=== PATIENT | male | born 1945 | race Two or more races ===

== ENCOUNTER 2018-06-22 11:09 | Emergency (ER) | payer OTHER ==
[2018-06-22 11:23] VITALS: TEMP 97.8; BMI 27.9
[2018-06-22] MEDS ORDERED: SODIUM CHLORIDE 0.9% 1000 ML INFUS.BAG IV ONE ×2 (13:15→15:42)
[2018-06-22 13:33] LABS: URINE APPEARANCE CLEAR; URINE BILIRUBIN NEGATIVE (<2.0 mg/dL); URINE COLOR STRAW; URINE GLUCOSE (UA) 3+ (NEGATIVE); URINE KETONE 1+ (NEGATIVE); URINE LEUK ESTERASE NEGATIVE (NEGATIVE); URINE NITRITE NEGATIVE (NEGATIVE); URINE PROTEIN NEGATIVE (NEGATIVE); URINE UROBILINOGEN NEGATIVE mg/dL (0.2-1.0)
[2018-06-22 13:37] LABS: EOS % 0.8 % (0-4.5); HEMATOCRIT 44.8 % (35.4-49); HEMOGLOBIN 15.4 GM/dL (11.7-16.9); LYMPH % 19.9 % (8-40); MCHC 34.5 g/dl (32.0-35.9); MEAN CELL VOLUME 89.9 fl (80-96); MEAN PLT VOLUME 9.4 fl (7.5-11.1); MONO % 5.9 % (3.8-10.2); NEUT % 72.4 % (42.8-82.8); PLATELET COUNT 189 K/MM3 (134-434); RBC 4.99 M/mm3 (4.00-5.60); RDW 12.9 % (11.9-15.9); WHITE BLOOD COUNT 8.4 K/mm3 (4.0-10.0)
[2018-06-22 13:53] LABS: VENOUS PC02 47.5 mmHg (38-52); VENOUS PH 7.4 (7.32-7.42)
[2018-06-22 13:54] LABS: VENOUS PO2 29.8 mmHg (28-48)
[2018-06-22 14:20] LABS: ALK PHOS 81 U/L (45-117); ANION GAP 9 MMOL/L (8-16); BILIRUBIN,TOTAL 0.5 mg/dL (0.2-1); BLOOD UREA NITROGEN 9 mg/dL (7-18); CHLORIDE 96 mmol/L (98-107); CO2 29 mmol/L (21-32); CREATININE 1.1 mg/dL (0.55-1.3); N-TERMINAL BNP 25.4 pg/ml (5-125); POTASSIUM 4.3 mmol/L (3.5-5.1); SGOT/AST 12 U/L (15-37); SGPT/ALT 20 U/L (13-61); SODIUM 133 mmol/L (136-145); TOT PROT 7.7 g/dl (6.4-8.2)
--- NOTE | 2018-06-22 14:49 | EKG ---
Test Reason : Blood Pressure : / mmHG Vent. Rate : 092 BPM Atrial Rate : 092 BPM P-R Int : 156 ms QRS Dur : 078 ms QT Int : 370 ms P-R-T Axes : 085 -23 021 degrees QTc Int : 457 ms POOR DATA QUALITY, INTERPRETATION MAY BE ADVERSELY AFFECTED NORMAL SINUS RHYTHM NORMAL ECG NO PREVIOUS ECGS AVAILABLE Confirmed by LORI CARCAMO MD ([id number]) on 06/22/2018 2:49:08 PM Referred By: Confirmed By:LORI CARCAMO MD
[2018-06-22 14:52] LABS: GLUCOSE,RANDOM 382 mg/dL (74-106)
[2018-06-22 16:42] LABS: ACETONE SERUM NEGATIVE (NEGATIVE)
--- NOTE | 2018-06-22 16:45 | PDOC ---
Documentation entered by Garima Lovelace SCRIBE, acting as scribe for Latoya Saleh MD. History of Present Illness - General Chief Complaint: Blood Sugar Problem Stated Complaint: HYPERGLYCEMIA History Source: Patient Exam Limitations: No Limitations - History of Present Illness Initial Comments: 06/22/18 13:10 The patient is a 72 year old female, with a significant past medical history of diabetes, who presents to the emergency department sent from the office of Dr. Morris for evaluation of lower extremity swelling, increased thirst, and polyuria. The patient denies any other complaints at this time. He states he used to take medications for his diabetes, however, stopped taking his medications 5 years ago and has not seen a physician until today. The patient denies chest pain, shortness of breath, headache and dizziness. The patient denies fever, chills, nausea, vomit, diarrhea and constipation. The patient denies dysuria, frequency, urgency and hematuria. leg swelling is bilateral. no h/o pe or dvt. does not report exertional dyspnea or orthopnea. no other complaints. Allergies: NKDA PCP - Dr. Marlena Morris 06/22/18 14:43 Past History - Past Medical History Allergies/Adverse Reactions: Allergies Allergy/AdvReac Type Severity Reaction Status Date / Time No Known Allergies Allergy Verified 06/22/18 11:19 Home Medications: Ambulatory Orders Metformin HCl [Glucophage] 500 mg PO BID #50 tablet 06/22/18 COPD: No Diabetes: Yes (no meds @ 5 years) - Suicide/Smoking/Psychosocial Hx Smoking History: Never smoked Review of Systems - Review of Systems Able to Perform ROS?: Yes Comments:: 06/22/18 13:12 GENERAL/CONSTITUTIONAL: No fever or chills. No weakness. HEAD, EYES, EARS, NOSE AND THROAT: No change in vision. No ear pain or discharge. No sore throat. CARDIOVASCULAR: No chest pain or shortness of breath. RESPIRATORY: No cough, wheezing, or hemoptysis. GASTROINTESTINAL: No nausea, vomiting, diarrhea or constipation. GENITOURINARY: (+) increased urinary frequency. No dysuria MUSCULOSKELETAL: (+) lower extremity swelling. No joint or muscle pain. No neck or back pain. SKIN: No rash NEUROLOGIC: No headache, vertigo, loss of consciousness, or change in strength/ sensation. ENDOCRINE: (+) increased thirst. No abnormal weight change. HEMATOLOGIC/LYMPHATIC: No anemia, easy bleeding, or history of blood clots. ALLERGIC/IMMUNOLOGIC: No hives or skin allergy. *Physical Exam - Vital Signs Last Vital Signs Temp Pulse Resp BP Pulse Ox 97.8 F 104 H 18 139/75 100 06/22/18 11:21 06/22/18 11:21 06/22/18 11:21 06/22/18 11:21 06/22/18 11:21 - Physical Exam Comments: 06/22/18 13:13 GENERAL: Awake, alert, and fully oriented, in no acute distress ENT: Moist mucosa LUNGS: Breath sounds equal, clear to auscultation bilaterally. No wheezes, and no crackles HEART: Regular rate and rhythm, normal S1 and S2, no murmurs, rubs or gallops ABDOMEN: Soft, nontender, normoactive bowel sounds. No guarding, no rebound. No masses EXTREMITIES: (+) nonpitting edema to bilateral lower extremities. Normal range of motion, No clubbing or cyanosis. No cords, erythema, or tenderness NEUROLOGICAL: Cranial nerves II through XII grossly intact. Normal speech, normal gait SKIN: Warm, Dry, normal turgor, no rashes or lesions noted. Moderate Sedation - Procedure Monitoring Vital Signs: Procedure Monitoring Vital Signs Temperature 97.8 F 06/22/18 11:21 Pulse Rate 104 H 06/22/18 11:21 Respiratory Rate 18 06/22/18 11:21 Blood Pressure 139/75 06/22/18 11:21 O2 Sat by Pulse Oximetry (%) 100 06/22/18 11:21 Heart Score/ECG Review #1 General ECG Interpretation: Sinus Rhythm, Normal Rate (92), Normal Intervals Compared to previous ECG there are: Previous ECG unavail ED Treatment Course - LABORATORY CBC & Chemistry Diagram: 06/22/18 13:20 06/22/18 13:20 - ADDITIONAL ORDERS Additional order review: Laboratory Results 06/22/18 06/22/18 06/22/18 13:20 13:20 13:20 VBG pH 7.40 POC VBG pCO2 47.5 POC VBG pO2 29.8 VBG O2 Sat (Erin) 45.8 L* VBG Base Excess 3.9 H Mixed VBG HCO3 29.1 H Sodium 133 L Potassium 4.3 Chloride 96 L Carbon Dioxide 29 Anion Gap 9 BUN 9 Creatinine 1.1 Creat Clearance w eGFR > 60 Calcium 9.0 Total Bilirubin 0.5 AST 12 L ALT 20 Alkaline Phosphatase 81 Creatine Kinase 48 Troponin I < 0.02 B-Natriuretic Peptide 25.4 Total Protein 7.7 Albumin 4.0 Urine Color Straw Urine Appearance Clear Urine pH 6.0 Ur Specific Comfrey 1.036 H Urine Protein Negative Urine Glucose (UA) 3+ H Urine Ketones 1+ H Urine Blood Negative Urine Nitrite Negative Urine Bilirubin Negative Urine Urobilinogen Negative Ur Leukocyte Esterase Negative 06/22/18 13:20 RBC 4.99 MCV 89.9 MCHC 34.5 RDW 12.9 MPV 9.4 Neutrophils % 72.4 Lymphocytes % 19.9 Monocytes % 5.9 Eosinophils % 0.8 Basophils % 1.0 - Medications Given in the ED: ED Medications Discontinued Medications Generic Name Dose Route Start Last Admin Trade Name Freq PRN Reason Stop Dose Admin Sodium Chloride 1,000 ml 06/22/18 13:15 06/22/18 13:35 Normal Saline - IV 06/22/18 13:16 1,000 ml ONCE ONE Administration Medical Decision Making - Medical Decision Making 06/22/18 14:45 72 yo male h/o DM not on meds x 5 yrs, here with c/o high sugar at pcp. bilat leg edema x 3 weeks. no sob, no cp, no f/c does report polyuria, polydypsia. differential dka hyperglycemia, dehydration, chf, angina or underlying infection. plan labs acetone, vbg, ekg, cxr and bnp. will call pcp to discuss followup care pending results. 06/22/18 15:42 pt with hyperglycemia, no dka no anion gap. hydrated. will repeat sugar and give insulin as needd. will sangeeta guevara on metformin with close followup. paged pcp dr. Morris, awaiting call back. 06/22/18 18:18 dw office, will see pt tomorrow. given insulin. will repeat sugar. will be started on metformin 500 bid with meals. *DC/Admit/Observation/Transfer Diagnosis at time of Disposition: Hyperglycemia - Prescriptions Prescriptions: Metformin HCl [Glucophage] 500 mg PO BID #50 tablet - Referrals Referrals: Casie Toney MD [Primary Care Provider] - - Patient Instructions Printed Discharge Instructions: DI for Hyperglycemia -- Adult, 'Diet Plate' May Help People With Diabetes Lose Weight Additional Instructions: you are supposed to follow up with dr Morris or the covering doctor tomorrow. you sugar is 318. you should avoid heavy sugar, and carbohydrates. adániu should also take metformin 500 mg twice daily with your meals. return for dizziness, chest pain or any concerns. Print Language: ROMANIAN - Post Discharge Activity - Attestations Scribe Attestion: 06/22/18 13:14 Documentation prepared by Garima Lovelace, acting as medical staff manager for MD Delfino Singh Angela, MD: This documentation has been prepared by the [employer] Amanda, SCRIBE, under my direction and personally reviewed by me in its entirety. I confirm that the documentation accurately reflects all work, treatment, procedures, and medical decision making performed by me.
[2018-06-22 18:07] VITALS: BP 127/68; PULSE 89
[2018-06-22] MEDS ORDERED: INSULIN REGULAR HUMAN 100 UNITS/ML *VIAL IVPUSH ONE (18:17)
[2018-06-22] MEDS ORDERED: INSULIN REGULAR HUMAN 100 UNITS/ML *VIAL ONE (18:20)
== END 2018-06-22 19:26 | disposition home or self-care (01) ==
LOC: JER 11:09
PROC: 3E013VG Introduction of Insulin into Subcutaneous Tissue, Percutaneous Approach (ICD-10-PCS; principal; 2018-06-22)
PROC: 3E0337Z Introduction of Electrolytic and Water Balance Substance into Peripheral Vein, Percutaneous Approach (ICD-10-PCS; 2018-06-22)
DX: E11.65 Type 2 diabetes mellitus with hyperglycemia (principal)
CPT/HCPCS: 36415; 80053; 81003; 82009; 82550; 82803; 82962; 83036; 83880; 84484; 85025; 93005; 93010; 96374; 99284-25; J7030

== ENCOUNTER 2020-12-29 09:19 | Inpatient (IN) | payer OTHER ==
[2020-12-29 09:39] VITALS: BMI 31.4
[2020-12-29] MEDS ORDERED: ACETAMINOPHEN 1000 MG/100 ML VIAL (NON FORMULARY) IVPB ONE (10:40)
[2020-12-29] MEDS ORDERED: ACETAMINOPHEN INJECTION 100 ML IVPB ONE (10:43)
[2020-12-29 11:18] LABS: BASO % 0.6 % (0-2.0); EOS % 0.4 % (0-4.5); HEMATOCRIT 36.2 % (35.4-49); HEMOGLOBIN 12.1 GM/dL (11.7-16.9); LYMPH % 12.3 % (8-40); MCH 29.4 pg (25.7-33.7); MCHC 33.6 g/dl (32.0-35.9); MEAN CELL VOLUME 87.7 fl (80-96); MEAN PLT VOLUME 10.5 fl (7.5-11.1); MONO % 6.9 % (3.8-10.2); NEUT % 79.8 % (42.8-82.8); PLATELET COUNT 102 10^3/uL (134-434); RBC 4.13 M/mm3 (4.00-5.60); WHITE BLOOD COUNT 5.5 K/mm3 (4.0-10.0)
[2020-12-29 11:37] LABS: VENOUS BASE EXCESS 4.7 mmol/L (-2-2); VENOUS O2 SATURATION 94.7 % (70-80); VENOUS PCO2 39.4 mmHg (38-52); VENOUS PH 7.477 (7.310-7.410)
[2020-12-29 11:40] LABS: CHLORIDE 106 mmol/L (98-107); SODIUM 141 mmol/L (136-145)
[2020-12-29 11:42] LABS: ALBUMIN 3.1 g/dl (3.4-5.0); CALCIUM 9.9 mg/dL (8.5-10.1); LIPASE 79 U/L (73-393)
[2020-12-29 11:43] LABS: ANION GAP 4 MMOL/L (8-16); CO2 30 mmol/L (21-32); GLUCOSE,RANDOM 110 mg/dL (74-106)
[2020-12-29 11:45] LABS: CREATININE 1.2 mg/dL (0.55-1.3); SGOT/AST 54 U/L (15-37); SGPT/ALT 38 U/L (13-61)
[2020-12-29 11:47] LABS: BILIRUBIN,TOTAL 0.4 mg/dL (0.2-1); TOT PROT 7.4 g/dl (6.4-8.2)
[2020-12-29 11:48] LABS: ALK PHOS 83 U/L (45-117)
[2020-12-29 14:46] LABS: EPI CELLS 12 /uL (0-25.1); HYALINE CASTS 1 /uL (0-3.1); PH,URINE 8.5 (5.0-8.0); URINE APPEARANCE TURBID; URINE BACTERIA 103 /uL (0-1359); URINE BILIRUBIN NEGATIVE (NEGATIVE); URINE COLOR YELLOW; URINE GLUCOSE (UA) NEGATIVE (NEGATIVE); URINE KETONE TRACE (NEGATIVE); URINE LEUK ESTERASE 1+ (NEGATIVE); URINE NITRITE NEGATIVE (NEGATIVE); URINE PROTEIN NEGATIVE (NEGATIVE); URINE RBC 9 /uL (0-23.9); URINE UROBILINOGEN 0.2 mg/dL (0.2-1.0); URINE WBC 92 /uL (0-25.8)
[2020-12-29 18:22] LABS: N-TERMINAL BNP 561.6 pg/ml (5-450)
[2020-12-30] MEDS ORDERED: ACETAMINOPHEN 325 MG TABLET (FP) PO PRN (00:41)
[2020-12-30] MEDS ORDERED: ACETAMINOPHEN 325 MG TABLET (FP) ONE (01:03)
[2020-12-30] MEDS ORDERED: FUROSEMIDE 40 MG/4 ML INJECTABLE VIAL IVPUSH ONE (04:32)
[2020-12-30] MEDS ORDERED: FUROSEMIDE 40 MG/4 ML INJECTABLE VIAL ONE (04:45)
[2020-12-30 07:06] LABS: BASO % 0.4 % (0-2.0); EOS % 0.8 % (0-4.5); HEMATOCRIT 36.6 % (35.4-49); HEMOGLOBIN 12.3 GM/dL (11.7-16.9); LYMPH % 11.3 % (8-40); MCH 29.6 pg (25.7-33.7); MCHC 33.5 g/dl (32.0-35.9); MEAN CELL VOLUME 88.3 fl (80-96); MEAN PLT VOLUME 10.3 fl (7.5-11.1); MONO % 6.6 % (3.8-10.2); NEUT % 80.9 % (42.8-82.8); PLATELET COUNT 93 10^3/uL (134-434); RBC 4.14 M/mm3 (4.00-5.60); WHITE BLOOD COUNT 6.3 K/mm3 (4.0-10.0)
[2020-12-30 07:20] LABS: CHLORIDE 104 mmol/L (98-107); SODIUM 139 mmol/L (136-145)
[2020-12-30 07:23] LABS: ALBUMIN 3.1 g/dl (3.4-5.0); ANION GAP 6 MMOL/L (8-16); BLOOD UREA NITROGEN 21.8 mg/dL (7-18); CALCIUM 9.3 mg/dL (8.5-10.1); CO2 28 mmol/L (21-32); GLUCOSE,RANDOM 80 mg/dL (74-106); MAGNESIUM 1.9 mg/dL (1.8-2.4)
[2020-12-30 07:26] LABS: CREATININE 1.2 mg/dL (0.55-1.3); SGOT/AST 50 U/L (15-37); SGPT/ALT 35 U/L (13-61)
[2020-12-30 07:27] LABS: PHOSPHOROUS 3.4 mg/dL (2.5-4.9)
[2020-12-30 07:28] LABS: BILIRUBIN,TOTAL 0.6 mg/dL (0.2-1); TOT PROT 7.3 g/dl (6.4-8.2)
[2020-12-30 07:29] LABS: ALK PHOS 82 U/L (45-117)
[2020-12-30 07:33] LABS: LDH 219 U/L (87-246)
[2020-12-30] MEDS: INSULIN SLIDING SCALE (NOVOLOG) 1 VIAL SQ SCH ×3 (10:07→21:34)
[2020-12-30] MEDS: SODIUM HYPOCHLORITE 0.25%- 473 ML BULK BOTTLE TP SCH (10:08)
[2020-12-30] MEDS: ENOXAPARIN NA (PORCINE) 40 MG/0.4 ML DISP.SYRIN SQ SCH (10:08)
[2020-12-30] MEDS ORDERED: ENOXAPARIN NA (PORCINE) 40 MG/0.4 ML DISP.SYRIN SQ ONE (10:12)
[2020-12-30] MEDS ORDERED: GABAPENTIN 300 MG CAPSULE PO SCH (22:00)
[2020-12-31] MEDS ORDERED: MELATONIN 5 MG TABLETS PO ONE (02:16)
[2020-12-31] MEDS: INSULIN SLIDING SCALE (NOVOLOG) 1 VIAL SQ SCH ×5 (07:42→21:58)
[2020-12-31 08:02] LABS: HEMOGLOBIN 11.2 GM/dL (11.7-16.9); MCH 30.1 pg (25.7-33.7); MCHC 33.9 g/dl (32.0-35.9); MEAN CELL VOLUME 88.7 fl (80-96); MEAN PLT VOLUME 11.1 fl (7.5-11.1); PLATELET COUNT 87 10^3/uL (134-434); RBC 3.72 M/mm3 (4.00-5.60); RDW 16.1 % (11.9-15.9)
[2020-12-31 08:03] LABS: CALCIUM 8.4 mg/dL (8.5-10.1)
[2020-12-31 08:04] LABS: ALBUMIN 2.6 g/dl (3.4-5.0); BLOOD UREA NITROGEN 20.1 mg/dL (7-18)
[2020-12-31 08:09] LABS: BILIRUBIN,TOTAL 0.3 mg/dL (0.2-1); TOT PROT 6.3 g/dl (6.4-8.2)
[2020-12-31] MEDS: TAMSULOSIN HCL 0.4 MG CAP PO SCH (10:31)
[2020-12-31] MEDS: ENOXAPARIN NA (PORCINE) 40 MG/0.4 ML DISP.SYRIN SQ SCH (10:31)
[2020-12-31] MEDS: SODIUM HYPOCHLORITE 0.25%- 473 ML BULK BOTTLE TP SCH (12:25)
[2020-12-31] MEDS ORDERED: FUROSEMIDE 40 MG/4 ML INJECTABLE VIAL IVPUSH ONE (15:31)
[2020-12-31] MEDS: LISINOPRIL 5 MG TABLET PO SCH (18:22)
[2020-12-31] MEDS: GABAPENTIN 300 MG CAPSULE PO SCH ×2 (18:22→21:51)
[2020-12-31] MEDS: LEVOTHYROXINE SODIUM 100 MCG VIAL IVPUSH SCH (18:23)
[2020-12-31 19:17] LABS: EPI CELLS 11 /uL (0-25.1); HYALINE CASTS 0 /uL (0-3.1); PH,URINE 8.5 (5.0-8.0); URINE APPEARANCE CLEAR; URINE BACTERIA 22 /uL (0-1359); URINE BILIRUBIN NEGATIVE (NEGATIVE); URINE COLOR YELLOW; URINE GLUCOSE (UA) NEGATIVE (NEGATIVE); URINE KETONE 2+ (NEGATIVE); URINE LEUK ESTERASE 1+ (NEGATIVE); URINE NITRITE NEGATIVE (NEGATIVE); URINE PROTEIN NEGATIVE (NEGATIVE); URINE RBC 5 /uL (0-23.9); URINE WBC 88 /uL (0-25.8)
[2020-12-31] MEDS: ATORVASTATIN CA 40 MG TABLET (FP) PO SCH (21:51)
[2021-01-01] MEDS: metFORMIN HCL 500 MG TABLET (FP) PO SCH ×2 (06:00→18:04)
[2021-01-01] MEDS: INSULIN SLIDING SCALE (NOVOLOG) 1 VIAL SQ SCH ×4 (06:01→23:03)
[2021-01-01] MEDS ORDERED: sitaGLIPtin PHOSPHATE 50 MG TABLET PO SCH (07:00)
[2021-01-01 08:56] LABS: HEMATOCRIT 32.9 % (35.4-49); HEMOGLOBIN 10.8 GM/dL (11.7-16.9); MCH 29.4 pg (25.7-33.7); MCHC 32.9 g/dl (32.0-35.9); MEAN CELL VOLUME 89.6 fl (80-96); MEAN PLT VOLUME 10.7 fl (7.5-11.1); PLATELET COUNT 83 10^3/uL (134-434); RBC 3.68 M/mm3 (4.00-5.60); RDW 16.4 % (11.9-15.9); WHITE BLOOD COUNT 4.3 K/mm3 (4.0-10.0)
[2021-01-01 09:27] LABS: CALCIUM 8.2 mg/dL (8.5-10.1)
[2021-01-01 09:28] LABS: ALBUMIN 2.6 g/dl (3.4-5.0); BLOOD UREA NITROGEN 18.9 mg/dL (7-18)
[2021-01-01 09:33] LABS: BILIRUBIN,TOTAL 0.5 mg/dL (0.2-1); TOT PROT 6.3 g/dl (6.4-8.2)
[2021-01-01] MEDS ORDERED: PT OWN MED DRAWER 7, Y5N ONE (10:21)
[2021-01-01] MEDS: LISINOPRIL 5 MG TABLET PO SCH (10:37)
[2021-01-01] MEDS: SODIUM HYPOCHLORITE 0.25%- 473 ML BULK BOTTLE TP SCH (10:38)
[2021-01-01] MEDS: TAMSULOSIN HCL 0.4 MG CAP PO SCH (13:36)
[2021-01-01] MEDS: ENOXAPARIN NA (PORCINE) 40 MG/0.4 ML DISP.SYRIN SQ SCH (13:36)
[2021-01-01] MEDS: POLYETHYLENE GLYCOL (HEALTHYLAX) 3350 17 GM PACKET PO SCH (13:37)
[2021-01-01] MEDS: LEVOTHYROXINE SODIUM 100 MCG VIAL IVPUSH SCH (13:37)
[2021-01-01] MEDS: GABAPENTIN 300 MG CAPSULE PO SCH ×2 (13:37→22:56)
[2021-01-01] MEDS: ATORVASTATIN CA 40 MG TABLET (FP) PO SCH (22:57)
[2021-01-02] MEDS: metFORMIN HCL 500 MG TABLET (FP) PO SCH ×2 (06:41→17:39)
[2021-01-02] MEDS: LEVOTHYROXINE NA 25 MCG TABLET (FP) PO SCH (06:41)
[2021-01-02] MEDS: GABAPENTIN 300 MG CAPSULE PO SCH ×3 (06:41→23:06)
[2021-01-02] MEDS: INSULIN SLIDING SCALE (NOVOLOG) 1 VIAL SQ SCH ×4 (06:42→23:58)
[2021-01-02 08:05] LABS: HEMATOCRIT 33.6 % (35.4-49); HEMOGLOBIN 11.2 GM/dL (11.7-16.9); MCH 29.8 pg (25.7-33.7); MCHC 33.2 g/dl (32.0-35.9); MEAN CELL VOLUME 89.6 fl (80-96); MEAN PLT VOLUME 11.1 fl (7.5-11.1); PLATELET COUNT 79 10^3/uL (134-434); RBC 3.75 M/mm3 (4.00-5.60); RDW 15.7 % (11.9-15.9); WHITE BLOOD COUNT 5.8 K/mm3 (4.0-10.0)
[2021-01-02 08:26] LABS: ALBUMIN 2.5 g/dl (3.4-5.0)
[2021-01-02 08:29] LABS: CREATININE 1.1 mg/dL (0.55-1.3)
[2021-01-02 08:30] LABS: BILIRUBIN,TOTAL 0.2 mg/dL (0.2-1); TOT PROT 6.3 g/dl (6.4-8.2)
[2021-01-02 08:33] LABS: BLOOD UREA NITROGEN 22.4 mg/dL (7-18); CALCIUM 8.4 mg/dL (8.5-10.1)
[2021-01-02 09:02] LABS: ACTIVATED PTT 39.8 SECONDS (25.2-36.5)
[2021-01-02 09:14] LABS: INR 0.99 (0.83-1.09); PROTHROMBIN TIME (PATIENT) 12.2 SEC (9.7-13.0)
[2021-01-02] MEDS: LISINOPRIL 5 MG TABLET PO SCH (09:58)
[2021-01-02] MEDS: TAMSULOSIN HCL 0.4 MG CAP PO SCH (09:59)
[2021-01-02] MEDS: POLYETHYLENE GLYCOL (HEALTHYLAX) 3350 17 GM PACKET PO SCH (09:59)
[2021-01-02] MEDS: COLLAGENASE CLOSTRIDIUM HIST. 30 GRAMS TUBE TP SCH (12:47)
[2021-01-02] MEDS: SODIUM HYPOCHLORITE 0.25%- 473 ML BULK BOTTLE TP SCH (12:47)
[2021-01-02] MEDS: ATORVASTATIN CA 40 MG TABLET (FP) PO SCH (23:06)
[2021-01-03] MEDS: LEVOTHYROXINE NA 25 MCG TABLET (FP) PO SCH (06:38)
[2021-01-03] MEDS: GABAPENTIN 300 MG CAPSULE PO SCH ×2 (06:38→16:36)
[2021-01-03] MEDS: INSULIN SLIDING SCALE (NOVOLOG) 1 VIAL SQ SCH ×2 (06:54→12:17)
[2021-01-03] MEDS: metFORMIN HCL 500 MG TABLET (FP) PO SCH (06:55)
[2021-01-03 08:17] LABS: HEMATOCRIT 33.8 % (35.4-49); HEMOGLOBIN 11.3 GM/dL (11.7-16.9); MCH 29.6 pg (25.7-33.7); MCHC 33.3 g/dl (32.0-35.9); MEAN CELL VOLUME 89.1 fl (80-96); MEAN PLT VOLUME 10.8 fl (7.5-11.1); PLATELET COUNT 82 10^3/uL (134-434); RDW 16.2 % (11.9-15.9); WHITE BLOOD COUNT 5.1 K/mm3 (4.0-10.0)
[2021-01-03] MEDS ORDERED: REGADENOSON 0.4 MG/5 ML PRE-FILLED SYRINGE IVPUSH ONE ×2 (09:00→11:30)
[2021-01-03 09:02] LABS: CALCIUM 8.1 mg/dL (8.5-10.1)
[2021-01-03] MEDS: LISINOPRIL 5 MG TABLET PO SCH (12:11)
[2021-01-03] MEDS: TAMSULOSIN HCL 0.4 MG CAP PO SCH (12:12)
[2021-01-03] MEDS: POLYETHYLENE GLYCOL (HEALTHYLAX) 3350 17 GM PACKET PO SCH (12:12)
[2021-01-03] MEDS: SODIUM HYPOCHLORITE 0.25%- 473 ML BULK BOTTLE TP SCH (14:11)
[2021-01-03] MEDS: COLLAGENASE CLOSTRIDIUM HIST. 30 GRAMS TUBE TP SCH (14:12)
[2021-01-03 15:33] VITALS: BP 103/68; PULSE 70; TEMP 93
== END 2021-01-03 17:56 | disposition home or self-care (01) | DRG 291 ==
LOC: JER 09:19 → JERBED 17:47 → J4W 12-30 16:44
PROVIDERS: ADMIT Family Medicine; ATTEND Internal Medicine
DX: I11.0 Hypertensive heart disease with heart failure (principal); I50.31 Acute diastolic (congestive) heart failure; E11.40 Type 2 diabetes mellitus with diabetic neuropathy, unspecified; N40.0 Benign prostatic hyperplasia without lower urinary tract symptoms; D64.9 Anemia, unspecified; D69.6 Thrombocytopenia, unspecified; E66.3 Overweight; E66.9 Obesity, unspecified; Z68.31 Body mass index [BMI] 31.0-31.9, adult; E78.5 Hyperlipidemia, unspecified; E03.9 Hypothyroidism, unspecified; E11.65 Type 2 diabetes mellitus with hyperglycemia; Z79.84 Long term (current) use of oral hypoglycemic drugs; L29.9 Pruritus, unspecified; L97.519 Non-pressure chronic ulcer of other part of right foot with unspecified severity; R68.0 Hypothermia, not associated with low environmental temperature; I35.1 Nonrheumatic aortic (valve) insufficiency
CPT/HCPCS: 36415; 71045-TC-FY; 71046-TC-FY; 73630-TC-RT-FY; 74177-TC; 78452-TC; 80048; 80053; 80061; 81003; 82607; 82728; 82746; 82803; 82962; 83036; 83540; 83550; 83605; 83615; 83690; 83735; 83880; 84100; 84439; 84443; 84479; 84480; 84481; 84484; 85025; 85027; 85379; 85384; 85610; 85651; 85730; 86140; 86376; 87040; 87086; 93005; 93010; 93017; 93306-TC; 93970-TC; 97116-GP; 97161-GP; 99285-25; A9502; C1887; C9803; J0131; J2785; Q9967; U0003; U0005

== ENCOUNTER 2021-02-15 14:51 | Inpatient (IN) | payer OTHER ==
[2021-02-15] MEDS ORDERED: ASPIRIN 81 MG CHEWABLE TABLETS PO ONE (17:24)
[2021-02-15] MEDS ORDERED: ASPIRIN 81 MG CHEWABLE TABLETS ONE (17:46)
[2021-02-15 17:51] LABS: BASO % 0.4 % (0-2.0); EOS % 0.7 % (0-4.5); HEMATOCRIT 35.1 % (35.4-49); HEMOGLOBIN 11.7 GM/dL (11.7-16.9); LYMPH % 20.5 % (8-40); MCH 29.5 pg (25.7-33.7); MCHC 33.4 g/dl (32.0-35.9); MEAN CELL VOLUME 88.3 fl (80-96); MEAN PLT VOLUME 10.4 fl (7.5-11.1); MONO % 7.8 % (3.8-10.2); NEUT % 70.6 % (42.8-82.8); PLATELET COUNT 73 10^3/uL (134-434); RBC 3.97 M/mm3 (4.00-5.60); RDW 16.6 % (11.9-15.9)
[2021-02-15 17:59] LABS: INR 0.97 (0.83-1.09); PROTHROMBIN TIME (PATIENT) 11.3 SEC (9.7-13.0)
[2021-02-15 18:01] LABS: ACTIVATED PTT 42.6 SECONDS (25.2-36.5)
[2021-02-15 18:10] LABS: CHLORIDE 106 mmol/L (98-107); SODIUM 141 mmol/L (136-145)
[2021-02-15 18:12] LABS: CALCIUM 9.7 mg/dL (8.5-10.1)
[2021-02-15 18:13] LABS: ALBUMIN 2.9 g/dl (3.4-5.0); ANION GAP 0 MMOL/L (8-16); BLOOD UREA NITROGEN 20.8 mg/dL (7-18); CO2 35 mmol/L (21-32); GLUCOSE,RANDOM 145 mg/dL (74-106)
[2021-02-15 18:16] LABS: CHOLESTEROL 115 mg/dL (50-200); CREATININE 1.5 mg/dL (0.55-1.3); SGOT/AST 34 U/L (15-37); SGPT/ALT 39 U/L (13-61); TRIGLYCERIDES 61 mg/dL (0-150)
[2021-02-15 18:17] LABS: LDL CHOLESTEROL (ONLY SJRH) 44 mg/dL (5-100); TOT PROT 7.3 g/dl (6.4-8.2)
[2021-02-15 18:18] LABS: ALK PHOS 96 U/L (45-117); BILIRUBIN,TOTAL 0.2 mg/dL (0.2-1); HDL CHOLESTEROL 60 mg/dL (40-60)
[2021-02-15] MEDS ORDERED: SODIUM CHLORIDE 0.9% 500 ML INFUS.BAG IV ONE (18:19)
[2021-02-15] MEDS ORDERED: VANCOMYCIN 1 GM in D5W (PRE-DOCKED) 1,000 MG/250 ML IVPB ONE (19:21)
[2021-02-15] MEDS ORDERED: PIPERACILLIN/TAZOB 3.375 GM 3.375 GM in DEXTROSE 5%-WATER - 50 ML IVPB ONE (19:21)
[2021-02-15] MEDS ORDERED: PIPERACILLIN/TAZOB 3.375 GM 3.375 GM/50 ML BAG IVPB ONE ×2 (19:41→21:58)
[2021-02-15 20:09] LABS: EPI CELLS 25 /uL (0-25.1); HYALINE CASTS 2 /uL (0-3.1); URINE APPEARANCE CLEAR; URINE BACTERIA 63 /uL (0-1359); URINE BILIRUBIN NEGATIVE (NEGATIVE); URINE COLOR YELLOW; URINE GLUCOSE (UA) NEGATIVE (NEGATIVE); URINE KETONE NEGATIVE (NEGATIVE); URINE LEUK ESTERASE 3+ (NEGATIVE); URINE NITRITE NEGATIVE (NEGATIVE); URINE PROTEIN NEGATIVE (NEGATIVE); URINE RBC 14 /uL (0-23.9); URINE WBC 238 /uL (0-25.8)
[2021-02-15] MEDS ORDERED: VANCOMYCIN 1 GRAM (PRE-DOCKED) 1,000 MG/250 ML BAG IVPB ONE (20:39)
[2021-02-15] MEDS ORDERED: INSULIN SLIDING SCALE (NOVOLOG) 1 VIAL SQ SCH (22:00)
[2021-02-15] MEDS ORDERED: GABAPENTIN 100 MG CAPSULE ONE (22:16)
[2021-02-15] MEDS ORDERED: ATORVASTATIN CA 40 MG TABLET (FP) ONE (22:16)
[2021-02-15] MEDS ORDERED: HEPARIN NA (PORCINE) 5,000 UNITS/ML 1ML VIAL ONE (22:17)
[2021-02-15] MEDS ORDERED: MIRTAZAPINE 15 MG TABLET (FP) ONE (22:17)
[2021-02-15] MEDS ORDERED: CEFEPIME 1 GM/100 ML BAG IVPB ONE (22:17)
[2021-02-15] MEDS: HEPARIN NA (PORCINE) 5,000 UNITS/ML 1ML VIAL SQ SCH (22:37)
[2021-02-15] MEDS: MIRTAZAPINE 15 MG TABLET (FP) PO SCH (22:38)
[2021-02-15] MEDS: ATORVASTATIN CA 40 MG TABLET (FP) PO SCH (22:38)
[2021-02-15] MEDS: GABAPENTIN 300 MG CAPSULE PO SCH (22:38)
[2021-02-15] MEDS: INSULIN SLIDING SCALE (NOVOLOG) 1 VIAL SQ SCH (22:39)
[2021-02-15] MEDS: LACTATED RINGERS SOLUTION 1,000 ML/1,000 ML INFUS.BAG IV SCH (23:05)
[2021-02-15] MEDS: CEFEPIME 1 GM in DEXTROSE 5%-WATER - 1 GM/50 ML IVPB IVPB SCH (23:06)
[2021-02-16 06:24] LABS: BASO % 0.2 % (0-2.0); EOS % 0.8 % (0-4.5); HEMATOCRIT 35.5 % (35.4-49); HEMOGLOBIN 11.8 GM/dL (11.7-16.9); LYMPH % 20.8 % (8-40); MCH 29.6 pg (25.7-33.7); MCHC 33.2 g/dl (32.0-35.9); MEAN CELL VOLUME 89.3 fl (80-96); MONO % 7.2 % (3.8-10.2); PLATELET COUNT 69 10^3/uL (134-434); RBC 3.98 M/mm3 (4.00-5.60); RDW 16.4 % (11.9-15.9); WHITE BLOOD COUNT 5.5 K/mm3 (4.0-10.0)
[2021-02-16] MEDS: LEVOTHYROXINE NA 25 MCG TABLET (FP) PO SCH (06:27)
[2021-02-16] MEDS: INSULIN SLIDING SCALE (NOVOLOG) 1 VIAL SQ SCH ×4 (06:27→21:53)
[2021-02-16] MEDS: GABAPENTIN 300 MG CAPSULE PO SCH ×3 (06:27→21:53)
[2021-02-16 06:45] LABS: ALBUMIN 2.7 g/dl (3.4-5.0); BLOOD UREA NITROGEN 17.2 mg/dL (7-18); CALCIUM 9.4 mg/dL (8.5-10.1); MAGNESIUM 1.7 mg/dL (1.8-2.4)
[2021-02-16 06:48] LABS: CREATININE 1.2 mg/dL (0.55-1.3)
[2021-02-16 06:49] LABS: PHOSPHOROUS 3.5 mg/dL (2.5-4.9)
[2021-02-16 06:50] LABS: BILIRUBIN,TOTAL 0.3 mg/dL (0.2-1); TOT PROT 7.2 g/dl (6.4-8.2)
[2021-02-16 07:13] VITALS: BMI 25.6
[2021-02-16] MEDS ORDERED: CEFEPIME HCL 1 GM VIAL (RESTRICTED TO ID) ONE ×2 (08:16→21:43)
[2021-02-16] MEDS ORDERED: DEXTROSE 5%-WATER - 50 ML IVPB ONE ×2 (08:17→21:43)
[2021-02-16] MEDS ORDERED: MAGNESIUM 1GM/D5W 100ML - 100 ML IVPB IVPB ONE (08:30)
[2021-02-16] MEDS: CEFEPIME 1 GM in DEXTROSE 5%-WATER - 1 GM/50 ML IVPB IVPB SCH ×2 (09:04→21:53)
[2021-02-16] MEDS: HEPARIN NA (PORCINE) 5,000 UNITS/ML 1ML VIAL SQ SCH (09:04)
[2021-02-16] MEDS: LISINOPRIL 5 MG TABLET PO SCH (09:10)
[2021-02-16] MEDS ORDERED: VANCOMYCIN 1 GM in D5W (PRE-DOCKED) 1,000 MG/250 ML IVPB SCH (10:00)
[2021-02-16] MEDS ORDERED: SIMETHICONE 80 MG TAB.CHEW (FP) PO PRN (15:39)
[2021-02-16] MEDS: LACTATED RINGERS SOLUTION 1,000 ML/1,000 ML INFUS.BAG IV SCH (21:52)
[2021-02-16] MEDS: ATORVASTATIN CA 40 MG TABLET (FP) PO SCH (21:53)
[2021-02-16] MEDS: MIRTAZAPINE 15 MG TABLET (FP) PO SCH (21:53)
[2021-02-17 05:58] VITALS: TEMP 97.5
[2021-02-17] MEDS: INSULIN SLIDING SCALE (NOVOLOG) 1 VIAL SQ SCH ×3 (06:09→17:13)
[2021-02-17] MEDS: GABAPENTIN 300 MG CAPSULE PO SCH ×2 (06:09→13:39)
[2021-02-17] MEDS: LEVOTHYROXINE NA 25 MCG TABLET (FP) PO SCH (06:09)
[2021-02-17 06:33] LABS: HEMATOCRIT 34.9 % (35.4-49); HEMOGLOBIN 11.4 GM/dL (11.7-16.9); MCH 29.2 pg (25.7-33.7); MCHC 32.8 g/dl (32.0-35.9); MEAN CELL VOLUME 89.1 fl (80-96); PLATELET COUNT 59 10^3/uL (134-434); RBC 3.92 M/mm3 (4.00-5.60); RDW 16.4 % (11.9-15.9); WHITE BLOOD COUNT 4.5 K/mm3 (4.0-10.0)
[2021-02-17 06:55] LABS: CALCIUM 8.9 mg/dL (8.5-10.1)
[2021-02-17 06:56] LABS: BLOOD UREA NITROGEN 17.9 mg/dL (7-18); MAGNESIUM 2.1 mg/dL (1.8-2.4)
[2021-02-17] MEDS ORDERED: DEXTROSE 5%-WATER - 50 ML IVPB ONE (09:02)
[2021-02-17] MEDS ORDERED: CEFEPIME HCL 1 GM VIAL (RESTRICTED TO ID) ONE (09:02)
[2021-02-17] MEDS ORDERED: PT OWN MED DRAWER 7, Y5N ONE ×2 (09:23→16:44)
[2021-02-17] MEDS: CEFEPIME 1 GM in DEXTROSE 5%-WATER - 1 GM/50 ML IVPB IVPB SCH (10:17)
[2021-02-17] MEDS: LISINOPRIL 5 MG TABLET PO SCH (10:17)
[2021-02-17] MEDS ORDERED: ASPIRIN 81 MG CHEWABLE TABLETS PO SCH (10:45)
[2021-02-17 15:03] VITALS: BP 122/90; PULSE 97
[2021-02-17] MEDS ORDERED: DOXYCYCLINE HYCLATE 100 MG CAPSULE PO SCH (15:45)
[2021-02-18] MEDS ORDERED: AMOX TR/POT CLAV 875MG/125MG TABLETS (FP) PO SCH (17:30)
== END 2021-02-17 17:35 | disposition home or self-care (01) | DRG 69 ==
LOC: JER 14:51 → JERBED 17:39 → J2W 02-16 06:21
PROVIDERS: ATTEND Internal Medicine
DX: G45.9 Transient cerebral ischemic attack, unspecified (principal); N17.9 Acute kidney failure, unspecified; I50.32 Chronic diastolic (congestive) heart failure; I13.0 Hypertensive heart and chronic kidney disease with heart failure and stage 1 through stage 4 chronic kidney disease, or unspecified chronic kidney disease; N39.0 Urinary tract infection, site not specified; E78.5 Hyperlipidemia, unspecified; E11.42 Type 2 diabetes mellitus with diabetic polyneuropathy; Z79.84 Long term (current) use of oral hypoglycemic drugs; I34.0 Nonrheumatic mitral (valve) insufficiency; D64.9 Anemia, unspecified; D69.6 Thrombocytopenia, unspecified; E83.52 Hypercalcemia; E03.9 Hypothyroidism, unspecified; N40.0 Benign prostatic hyperplasia without lower urinary tract symptoms; E11.22 Type 2 diabetes mellitus with diabetic chronic kidney disease; N18.9 Chronic kidney disease, unspecified
CPT/HCPCS: 36415; 70450-TC; 70551-TC; 71045-TC-FY; 80048; 80053; 80061; 81003; 82550; 82962; 83036; 83605; 83735; 84100; 84436; 84439; 84443; 84484; 85025; 85027; 85610; 85730; 86850; 86900; 86901; 87040; 87086; 87186; 93005; 93010; 93880-TC; 97116-GP; 97161-GP; 99285-25; C9803; J1644; U0003; U0005

== ENCOUNTER 2021-02-24 14:02 | Inpatient (IN) | payer OTHER ==
[2021-02-24] MEDS ORDERED: PANTOPRAZOLE SODIUM 40 MG VIAL IVPUSH ONE (15:06)
[2021-02-24] MEDS ORDERED: SODIUM CHLORIDE 0.9% 500 ML INFUS.BAG IV ONE (15:09)
[2021-02-24] MEDS ORDERED: PANTOPRAZOLE SODIUM 40 MG VIAL ONE ×2 (15:24→19:52)
[2021-02-24 15:45] LABS: BASO % 0.1 % (0-2.0); EOS % 2.1 % (0-4.5); HEMATOCRIT 17.2 % (35.4-49); LYMPH % 8.8 % (8-40); MCH 29.8 pg (25.7-33.7); MEAN CELL VOLUME 87.7 fl (80-96); MEAN PLT VOLUME 10.4 fl (7.5-11.1); MONO % 1.8 % (3.8-10.2); NEUT % 87.2 % (42.8-82.8); PLATELET COUNT 52 10^3/uL (134-434); RBC 1.97 M/mm3 (4.00-5.60); RDW 16.2 % (11.9-15.9); WHITE BLOOD COUNT 6.3 K/mm3 (4.0-10.0)
[2021-02-24] MEDS ORDERED: ONDANSETRON 4 MG/2 ML VIAL IVPUSH ONE (15:47)
[2021-02-24 15:50] LABS: HEMOGLOBIN 5.9 GM/dL (11.7-16.9)
[2021-02-24] MEDS ORDERED: ONDANSETRON 4 MG/2 ML VIAL ONE (15:52)
[2021-02-24 16:01] LABS: CHLORIDE 105 mmol/L (98-107); SODIUM 143 mmol/L (136-145)
[2021-02-24 16:03] LABS: CALCIUM 9.6 mg/dL (8.5-10.1)
[2021-02-24 16:04] LABS: ALBUMIN 2.6 g/dl (3.4-5.0); ANION GAP 4 MMOL/L (8-16); CO2 34 mmol/L (21-32); GLUCOSE,RANDOM 172 mg/dL (74-106)
[2021-02-24 16:07] LABS: CREATININE 1.1 mg/dL (0.55-1.3); SGOT/AST 44 U/L (15-37); SGPT/ALT 49 U/L (13-61)
[2021-02-24 16:08] LABS: BILIRUBIN,TOTAL 0.2 mg/dL (0.2-1); BLOOD UREA NITROGEN 55.4 mg/dL (7-18)
[2021-02-24 16:12] LABS: N-TERMINAL BNP 630.8 pg/ml (5-450)
[2021-02-24 16:24] LABS: ALK PHOS 61 U/L (45-117)
[2021-02-24 16:31] LABS: INR 1.02 (0.83-1.09); PROTHROMBIN TIME (PATIENT) 11.4 SEC (9.7-13.0)
[2021-02-24 16:32] LABS: ACTIVATED PTT 37.3 SECONDS (25.2-36.5)
[2021-02-24 17:11] LABS: LACTIC ACID 2.4 mmol/L (0.4-2.0)
[2021-02-24] MEDS ORDERED: PANTOPRAZOLE SODIUM 80 MG in SODIUM CHLORIDE 100 ML IVPB SCH (17:15)
[2021-02-24] MEDS ORDERED: CEFTRIAXONE 1,000 MG in DEXTROSE 5%-WATER - 50 ML IVPB ONE (19:12)
[2021-02-24] MEDS: SODIUM CHLORIDE 1,000 ML IV SCH (19:15)
[2021-02-24] MEDS ORDERED: OCTREOTIDE ACETATE 200 MCG, OCTREOTIDE ACETATE 1,000 MCG in DEXTROSE 5%-WATER - 496 ML IVPB SCH (19:15)
[2021-02-24] MEDS ORDERED: CEFTRIAXONE 1 GM/50 ML BAG ONE (19:52)
[2021-02-25] MEDS: SODIUM CHLORIDE 1,000 ML IV SCH (06:07)
[2021-02-25] MEDS: INSULIN SLIDING SCALE (NOVOLOG) 1 VIAL SQ SCH ×4 (06:08→21:36)
[2021-02-25] MEDS ORDERED: LEVOTHYROXINE NA 25 MCG TABLET (FP) PO SCH (07:00)
[2021-02-25 07:39] LABS: BASO % 0.2 % (0-2.0); EOS % 2.4 % (0-4.5); HEMATOCRIT 27.1 % (35.4-49); HEMOGLOBIN 9.4 GM/dL (11.7-16.9); LYMPH % 9.2 % (8-40); MCH 30.6 pg (25.7-33.7); MCHC 34.6 g/dl (32.0-35.9); MEAN CELL VOLUME 88.5 fl (80-96); MEAN PLT VOLUME 8.5 fl (7.5-11.1); MONO % 4.3 % (3.8-10.2); NEUT % 83.9 % (42.8-82.8); PLATELET COUNT 74 10^3/uL (134-434); RBC 3.06 M/mm3 (4.00-5.60); RDW 14.5 % (11.9-15.9); WHITE BLOOD COUNT 10.2 K/mm3 (4.0-10.0)
[2021-02-25 07:53] LABS: CALCIUM 8.9 mg/dL (8.5-10.1)
[2021-02-25 07:54] LABS: ALBUMIN 2.6 g/dl (3.4-5.0); CREATININE 1.1 mg/dL (0.55-1.3); MAGNESIUM 1.8 mg/dL (1.8-2.4)
[2021-02-25 07:55] LABS: BLOOD UREA NITROGEN 55.5 mg/dL (7-18); PHOSPHOROUS 3.9 mg/dL (2.5-4.9)
[2021-02-25 07:56] LABS: BILIRUBIN,TOTAL 0.3 mg/dL (0.2-1); TOT PROT 5.8 g/dl (6.4-8.2)
[2021-02-25] MEDS ORDERED: DEXTROSE 50%-WATER - 25 GM/50 ML VIAL IVPUSH ONE (11:00)
[2021-02-25] MEDS ORDERED: INSULIN REGULAR HUMAN 100 UNITS/ML *VIAL IVPUSH ONE (11:00)
[2021-02-25] MEDS ORDERED: DEXTROSE 50%-WATER 25 GM/50 ML DISP.SYRIN ONE (11:26)
[2021-02-25] MEDS: DEXTROSE 5%-0.45% SALINE 1,000 ML IV SCH (11:40)
[2021-02-25] MEDS ORDERED: PT OWN MED DRAWER 7, Y5N ONE (14:13)
[2021-02-25] MEDS: PANTOPRAZOLE SODIUM 80 MG in SODIUM CHLORIDE 100 ML IVPB SCH ×3 (14:26→22:14)
[2021-02-25] MEDS ORDERED: FOLIC ACID 5 MG/1 ML SQ ONE (15:00)
[2021-02-25] MEDS: MIRTAZAPINE 15 MG TABLET (FP) PO SCH ×3 (16:48→21:38)
[2021-02-25] MEDS: ATORVASTATIN CA 40 MG TABLET (FP) PO SCH (21:38)
[2021-02-26] MEDS: PANTOPRAZOLE SODIUM 80 MG in SODIUM CHLORIDE 100 ML IVPB SCH ×2 (06:31→16:55)
[2021-02-26] MEDS: INSULIN SLIDING SCALE (NOVOLOG) 1 VIAL SQ SCH ×4 (06:31→21:39)
[2021-02-26] MEDS: LEVOTHYROXINE NA 25 MCG TABLET (FP) PO SCH (06:31)
[2021-02-26 07:19] LABS: BASO % 0.2 % (0-2.0); EOS % 2.2 % (0-4.5); HEMATOCRIT 24.4 % (35.4-49); HEMOGLOBIN 8.6 GM/dL (11.7-16.9); LYMPH % 10.8 % (8-40); MCH 31.1 pg (25.7-33.7); MCHC 35.2 g/dl (32.0-35.9); MEAN CELL VOLUME 88.3 fl (80-96); MEAN PLT VOLUME 10.2 fl (7.5-11.1); MONO % 6.5 % (3.8-10.2); NEUT % 80.3 % (42.8-82.8); PLATELET COUNT 79 10^3/uL (134-434); RBC 2.76 M/mm3 (4.00-5.60); RDW 15.2 % (11.9-15.9); RETICULOCYTES 1.98 % (0.5-1.5); WHITE BLOOD COUNT 7.6 K/mm3 (4.0-10.0)
[2021-02-26 07:23] LABS: HEMATOCRIT 24.6 % (35.4-49); HEMOGLOBIN 8.7 GM/dL (11.7-16.9); MCH 31.1 pg (25.7-33.7); MCHC 35.4 g/dl (32.0-35.9); MEAN CELL VOLUME 87.9 fl (80-96); MEAN PLT VOLUME 10.8 fl (7.5-11.1); PLATELET COUNT 79 10^3/uL (134-434); RDW 15.1 % (11.9-15.9); WHITE BLOOD COUNT 7.8 K/mm3 (4.0-10.0)
[2021-02-26 07:44] LABS: CALCIUM 7.9 mg/dL (8.5-10.1)
[2021-02-26 07:45] LABS: BLOOD UREA NITROGEN 51.4 mg/dL (7-18); MAGNESIUM 1.7 mg/dL (1.8-2.4)
[2021-02-26 07:48] LABS: CREATININE 1.2 mg/dL (0.55-1.3)
[2021-02-26 07:49] LABS: PHOSPHOROUS 3.4 mg/dL (2.5-4.9)
[2021-02-26] MEDS ORDERED: MAGNESIUM 2GM/50ML STERILE WATER IVPB IVPB ONE ×2 (09:13→16:45)
[2021-02-26] MEDS ORDERED: MIDAZOLAM HCL 2 MG/2 ML SINGLE DOSE VIAL ONE (11:33)
[2021-02-26] MEDS ORDERED: EPINEPHrine 1:10,000 (P-F SYR) 1 MG/10 ML DISP.SYRIN ONE (11:36)
[2021-02-26] MEDS ORDERED: TETRACAINE/BENZOCAINE/BUTAMBEN 20 GM SPR TP ONE (11:40)
[2021-02-26] MEDS ORDERED: DEXTROSE 5%-0.45% SALINE 1,000 ML IV SCH (12:15)
[2021-02-26] MEDS ORDERED: SODIUM CHLORIDE 500 ML IV STA (14:04)
[2021-02-26] MEDS: FOLIC ACID 1 MG TABLET (FP) PO SCH (16:36)
[2021-02-26] MEDS: DEXTROSE 5%-0.45% SALINE 1,000 ML IV SCH ×3 (16:54→22:00)
[2021-02-26] MEDS ORDERED: MAG HYDROX/AL HYDROX/SIMETH -MYLANTA- ORAL SUSPENSION PO SCH (18:00)
[2021-02-26 18:36] LABS: BASO % 0.1 % (0-2.0); EOS % 1.8 % (0-4.5); HEMOGLOBIN 7.5 GM/dL (11.7-16.9); LYMPH % 12.6 % (8-40); MCH 30.5 pg (25.7-33.7); MCHC 34.4 g/dl (32.0-35.9); MEAN CELL VOLUME 88.9 fl (80-96); MEAN PLT VOLUME 10.9 fl (7.5-11.1); MONO % 5.6 % (3.8-10.2); NEUT % 79.9 % (42.8-82.8); PLATELET COUNT 77 10^3/uL (134-434); RBC 2.47 M/mm3 (4.00-5.60); RDW 14.9 % (11.9-15.9)
[2021-02-26 19:06] LABS: BLOOD UREA NITROGEN 45.6 mg/dL (7-18); CALCIUM 7.6 mg/dL (8.5-10.1)
[2021-02-26 19:08] LABS: CHOLESTEROL 94 mg/dL (50-200); TRIGLYCERIDES 101 mg/dL (0-150)
[2021-02-26 19:09] LABS: CREATININE 1.2 mg/dL (0.55-1.3)
[2021-02-26 19:10] LABS: HDL CHOLESTEROL 38 mg/dL (40-60)
[2021-02-26 19:11] LABS: BILIRUBIN,TOTAL 0.2 mg/dL (0.2-1); TOT PROT 4.9 g/dl (6.4-8.2)
[2021-02-26 19:14] LABS: ALBUMIN 2.1 g/dl (3.4-5.0); LACTIC ACID 2.9 mmol/L (0.4-2.0)
[2021-02-26 19:15] LABS: INR 0.99 (0.83-1.09); PROTHROMBIN TIME (PATIENT) 11.6 SEC (9.7-13.0)
[2021-02-26 19:17] LABS: ACTIVATED PTT 34.7 SECONDS (25.2-36.5)
[2021-02-26 19:26] LABS: LDL CHOLESTEROL (ONLY SJRH) 43 mg/dL (5-100)
[2021-02-26] MEDS: ATORVASTATIN CA 40 MG TABLET (FP) PO SCH (21:41)
[2021-02-26] MEDS: MIRTAZAPINE 15 MG TABLET (FP) PO SCH (21:42)
[2021-02-27] MEDS: PANTOPRAZOLE SODIUM 80 MG in SODIUM CHLORIDE 100 ML IVPB SCH ×3 (04:23→22:46)
[2021-02-27] MEDS: MAG HYDROX/AL HYDROX/SIMETH 30 ML UNIT-DOSE CUP PO SCH ×4 (05:10→18:19)
[2021-02-27 06:07] LABS: EPI CELLS 8 /uL (0-25.1); HYALINE CASTS 3 /uL (0-3.1); URINE APPEARANCE CLEAR; URINE BACTERIA 6 /uL (0-1359); URINE BILIRUBIN NEGATIVE (NEGATIVE); URINE COLOR YELLOW; URINE GLUCOSE (UA) NEGATIVE (NEGATIVE); URINE KETONE NEGATIVE (NEGATIVE); URINE LEUK ESTERASE 2+ (NEGATIVE); URINE NITRITE NEGATIVE (NEGATIVE); URINE PROTEIN NEGATIVE (NEGATIVE); URINE RBC 172 /uL (0-23.9); URINE UROBILINOGEN 0.2 mg/dL (0.2-1.0); URINE WBC 112 /uL (0-25.8)
[2021-02-27] MEDS: INSULIN SLIDING SCALE (NOVOLOG) 1 VIAL SQ SCH ×4 (06:21→22:47)
[2021-02-27] MEDS: LEVOTHYROXINE NA 25 MCG TABLET (FP) PO SCH (06:22)
[2021-02-27 09:53] LABS: BASO % 0.4 % (0-2.0); EOS % 2.2 % (0-4.5); HEMATOCRIT 21.6 % (35.4-49); HEMOGLOBIN 7.7 GM/dL (11.7-16.9); LYMPH % 14.8 % (8-40); MCHC 35.8 g/dl (32.0-35.9); MEAN CELL VOLUME 86.6 fl (80-96); MEAN PLT VOLUME 10.6 fl (7.5-11.1); MONO % 8.5 % (3.8-10.2); NEUT % 74.1 % (42.8-82.8); PLATELET COUNT 84 10^3/uL (134-434); WHITE BLOOD COUNT 7.4 K/mm3 (4.0-10.0)
[2021-02-27 09:59] LABS: INR 1.04 (0.83-1.09); PROTHROMBIN TIME (PATIENT) 11.7 SEC (9.7-13.0)
[2021-02-27] MEDS: FOLIC ACID 1 MG TABLET (FP) PO SCH (10:09)
[2021-02-27 10:11] LABS: ALBUMIN 2.1 g/dl (3.4-5.0); CALCIUM 7.4 mg/dL (8.5-10.1)
[2021-02-27 10:12] LABS: BLOOD UREA NITROGEN 37.3 mg/dL (7-18)
[2021-02-27 10:13] LABS: BILIRUBIN,TOTAL 0.3 mg/dL (0.2-1); TOT PROT 4.9 g/dl (6.4-8.2)
[2021-02-27 10:15] LABS: CREATININE 1.2 mg/dL (0.55-1.3)
[2021-02-27] MEDS: DEXTROSE 5%-0.45% SALINE 1,000 ML IV SCH (18:14)
[2021-02-27] MEDS ORDERED: DEXTROSE 5%-WATER - 50 ML IVPB ONE (18:51)
[2021-02-27] MEDS ORDERED: PIPERACILLIN/TAZOBACTAM 3.375 GM VIAL IVPB ONE (18:51)
[2021-02-27] MEDS: PIPERACILLIN/TAZOB 3.375 GM 3.375 GM in DEXTROSE 5%-WATER - 50 ML IVPB SCH (19:08)
[2021-02-27] MEDS: ATORVASTATIN CA 40 MG TABLET (FP) PO SCH (22:48)
[2021-02-27] MEDS: MIRTAZAPINE 15 MG TABLET (FP) PO SCH (22:48)
[2021-02-28] MEDS ORDERED: DEXTROSE 5%-WATER - 50 ML IVPB ONE ×3 (03:05→18:37)
[2021-02-28] MEDS ORDERED: PIPERACILLIN/TAZOBACTAM 3.375 GM VIAL IVPB ONE ×3 (03:05→18:36)
[2021-02-28] MEDS: PIPERACILLIN/TAZOB 3.375 GM 3.375 GM in DEXTROSE 5%-WATER - 50 ML IVPB SCH ×3 (03:15→18:50)
[2021-02-28] MEDS: MAG HYDROX/AL HYDROX/SIMETH 30 ML UNIT-DOSE CUP PO SCH ×4 (03:16→18:36)
[2021-02-28] MEDS: PANTOPRAZOLE SODIUM 80 MG in SODIUM CHLORIDE 100 ML IVPB SCH ×2 (05:04→13:27)
[2021-02-28 07:47] LABS: BASO % 0.3 % (0-2.0); EOS % 2.9 % (0-4.5); HEMATOCRIT 20.9 % (35.4-49); HEMOGLOBIN 7.3 GM/dL (11.7-16.9); LYMPH % 20.5 % (8-40); MCH 29.8 pg (25.7-33.7); MEAN CELL VOLUME 85.2 fl (80-96); MEAN PLT VOLUME 9.9 fl (7.5-11.1); MONO % 8.6 % (3.8-10.2); NEUT % 67.7 % (42.8-82.8); PLATELET COUNT 84 10^3/uL (134-434); RBC 2.46 M/mm3 (4.00-5.60); RDW 15.2 % (11.9-15.9); WHITE BLOOD COUNT 5.9 K/mm3 (4.0-10.0)
[2021-02-28 07:49] LABS: CALCIUM 7.4 mg/dL (8.5-10.1)
[2021-02-28] MEDS: INSULIN SLIDING SCALE (NOVOLOG) 1 VIAL SQ SCH ×4 (07:49→23:11)
[2021-02-28 07:50] LABS: MAGNESIUM 2.3 mg/dL (1.8-2.4)
[2021-02-28] MEDS: LEVOTHYROXINE NA 25 MCG TABLET (FP) PO SCH (07:50)
[2021-02-28 07:53] LABS: CREATININE 1.2 mg/dL (0.55-1.3); PHOSPHOROUS 2.7 mg/dL (2.5-4.9)
[2021-02-28] MEDS: IRON POLYSACCHARIDES 150 MG CAPSULE PO SCH (09:20)
[2021-02-28] MEDS: FOLIC ACID 1 MG TABLET (FP) PO SCH (09:20)
[2021-02-28] MEDS ORDERED: LORazepam 2 MG/ML SDV VIAL IVPUSH ONE (11:40)
[2021-02-28] MEDS ORDERED: LORazepam 2 MG/ML SDV VIAL IVPUSH PRN (13:01)
[2021-02-28] MEDS: PANTOPRAZOLE SODIUM 40 MG VIAL IVPUSH SCH ×2 (15:13→23:22)
[2021-02-28] MEDS: DEXTROSE 5%-0.45% SALINE 1,000 ML IV SCH (18:49)
[2021-02-28] MEDS: ATORVASTATIN CA 40 MG TABLET (FP) PO SCH (23:11)
[2021-02-28] MEDS: MIRTAZAPINE 15 MG TABLET (FP) PO SCH (23:12)
[2021-03-01] MEDS: MAG HYDROX/AL HYDROX/SIMETH 30 ML UNIT-DOSE CUP PO SCH ×6 (01:41→17:53)
[2021-03-01] MEDS ORDERED: PIPERACILLIN/TAZOBACTAM 3.375 GM VIAL IVPB ONE ×3 (02:58→17:04)
[2021-03-01] MEDS ORDERED: DEXTROSE 5%-WATER - 50 ML IVPB ONE ×3 (02:58→17:04)
[2021-03-01] MEDS: PIPERACILLIN/TAZOB 3.375 GM 3.375 GM in DEXTROSE 5%-WATER - 50 ML IVPB SCH ×3 (04:50→17:27)
[2021-03-01] MEDS: INSULIN SLIDING SCALE (NOVOLOG) 1 VIAL SQ SCH ×4 (06:10→22:21)
[2021-03-01] MEDS: LEVOTHYROXINE NA 25 MCG TABLET (FP) PO SCH (06:14)
[2021-03-01 07:57] LABS: CALCIUM 7.4 mg/dL (8.5-10.1)
[2021-03-01 07:58] LABS: BLOOD UREA NITROGEN 22.3 mg/dL (7-18)
[2021-03-01 08:00] LABS: MAGNESIUM 2.2 mg/dL (1.8-2.4)
[2021-03-01 08:01] LABS: PHOSPHOROUS 2.8 mg/dL (2.5-4.9)
[2021-03-01 08:02] LABS: CREATININE 1.1 mg/dL (0.55-1.3)
[2021-03-01 08:05] LABS: HEMATOCRIT 25.8 % (35.4-49); HEMOGLOBIN 8.9 GM/dL (11.7-16.9); MCH 30.7 pg (25.7-33.7); MCHC 34.3 g/dl (32.0-35.9); MEAN CELL VOLUME 89.5 fl (80-96); PLATELET COUNT 85 10^3/uL (134-434); RBC 2.89 M/mm3 (4.00-5.60); WHITE BLOOD COUNT 6.9 K/mm3 (4.0-10.0)
[2021-03-01] MEDS: FOLIC ACID 1 MG TABLET (FP) PO SCH (09:47)
[2021-03-01] MEDS: IRON POLYSACCHARIDES 150 MG CAPSULE PO SCH (09:47)
[2021-03-01] MEDS: PANTOPRAZOLE SODIUM 40 MG VIAL IVPUSH SCH ×2 (09:48→21:10)
[2021-03-01] MEDS: DEXTROSE 5%-0.45% SALINE 1,000 ML IV SCH ×2 (11:07→15:24)
[2021-03-01] MEDS ORDERED: THIAMINE HCL 200 MG/2 ML VIAL IVPB SCH (14:00)
[2021-03-01] MEDS ORDERED: COSYNTROPIN 0.25 MG VIAL IVPUSH ONE (14:00)
[2021-03-01] MEDS ORDERED: HYDROCORTISONE SOD SUCCINATE 100 MG/2 ML VIAL IVPB ONE (16:34)
[2021-03-01] MEDS: DEXTROSE 5%-NORMAL SALINE 1,000 ML IV SCH (17:24)
[2021-03-01] MEDS: ATORVASTATIN CA 40 MG TABLET (FP) PO SCH (21:08)
[2021-03-01] MEDS: MIRTAZAPINE 15 MG TABLET (FP) PO SCH (21:08)
[2021-03-01] MEDS: THIAMINE HCL 200 MG/2 ML VIAL IVPB SCH ×2 (21:09→22:00)
[2021-03-01] MEDS: HYDROCORTISONE SOD SUCCINATE 100 MG/2 ML VIAL IVPB SCH (22:18)
[2021-03-02] MEDS ORDERED: DEXTROSE 5%-WATER - 50 ML IVPB ONE ×3 (01:30→16:45)
[2021-03-02] MEDS ORDERED: PIPERACILLIN/TAZOBACTAM 3.375 GM VIAL IVPB ONE ×3 (01:30→16:45)
[2021-03-02] MEDS: PIPERACILLIN/TAZOB 3.375 GM 3.375 GM in DEXTROSE 5%-WATER - 50 ML IVPB SCH ×3 (01:45→17:23)
[2021-03-02] MEDS: MAG HYDROX/AL HYDROX/SIMETH 30 ML UNIT-DOSE CUP PO SCH ×4 (01:45→17:24)
[2021-03-02] MEDS: HYDROCORTISONE SOD SUCCINATE 100 MG/2 ML VIAL IVPB SCH ×4 (05:48→22:37)
[2021-03-02] MEDS: THIAMINE HCL 200 MG/2 ML VIAL IVPB SCH ×3 (06:39→21:01)
[2021-03-02] MEDS: LEVOTHYROXINE NA 25 MCG TABLET (FP) PO SCH (06:41)
[2021-03-02] MEDS: DEXTROSE 5%-NORMAL SALINE 1,000 ML IV SCH ×2 (06:43→09:35)
[2021-03-02] MEDS: INSULIN SLIDING SCALE (NOVOLOG) 1 VIAL SQ SCH ×4 (06:47→22:47)
[2021-03-02 07:19] LABS: MAGNESIUM 2.6 mg/dL (1.8-2.4)
[2021-03-02 07:20] LABS: CALCIUM 7.7 mg/dL (8.5-10.1)
[2021-03-02 07:23] LABS: CREATININE 1.1 mg/dL (0.55-1.3); PHOSPHOROUS 3.1 mg/dL (2.5-4.9)
[2021-03-02 08:07] LABS: HEMATOCRIT 29.1 % (35.4-49); HEMOGLOBIN 9.9 GM/dL (11.7-16.9); MCH 30.2 pg (25.7-33.7); MEAN PLT VOLUME 10.2 fl (7.5-11.1); PLATELET COUNT 93 10^3/uL (134-434); RBC 3.27 M/mm3 (4.00-5.60); RDW 15.1 % (11.9-15.9)
[2021-03-02] MEDS ORDERED: FUROSEMIDE 40 MG/4 ML INJECTABLE VIAL IVPUSH ONE (08:58)
[2021-03-02] MEDS: FOLIC ACID 1 MG TABLET (FP) PO SCH (09:35)
[2021-03-02] MEDS: ASCORBIC ACID 500 MG TABLET (FP) PO SCH (09:35)
[2021-03-02] MEDS: IRON POLYSACCHARIDES 150 MG CAPSULE PO SCH (09:35)
[2021-03-02] MEDS: PANTOPRAZOLE SODIUM 40 MG VIAL IVPUSH SCH ×2 (09:46→21:00)
[2021-03-02] MEDS: MULTIVITAMINS (DAILY MVI) TABLET (FP) PO SCH (09:46)
[2021-03-02] MEDS ORDERED: PNEUMOC 13-VAL CONJ-DIP CRM/PF 0.5 ML DISP.SYRIN IM ONE (16:14)
[2021-03-02] MEDS: MIRTAZAPINE 15 MG TABLET (FP) PO SCH ×2 (20:59→22:47)
[2021-03-02] MEDS: ATORVASTATIN CA 40 MG TABLET (FP) PO SCH ×2 (21:00→22:47)
[2021-03-03] MEDS ORDERED: PIPERACILLIN/TAZOBACTAM 3.375 GM VIAL IVPB ONE ×3 (00:54→17:59)
[2021-03-03] MEDS ORDERED: DEXTROSE 5%-WATER - 50 ML IVPB ONE ×3 (00:54→17:59)
[2021-03-03] MEDS: MAG HYDROX/AL HYDROX/SIMETH 30 ML UNIT-DOSE CUP PO SCH ×4 (00:56→18:05)
[2021-03-03] MEDS: PIPERACILLIN/TAZOB 3.375 GM 3.375 GM in DEXTROSE 5%-WATER - 50 ML IVPB SCH ×3 (01:09→18:03)
[2021-03-03] MEDS: THIAMINE HCL 200 MG/2 ML VIAL IVPB SCH ×3 (05:44→22:02)
[2021-03-03] MEDS: DEXTROSE 5%-NORMAL SALINE 1,000 ML IV SCH ×2 (05:46→09:36)
[2021-03-03] MEDS: LEVOTHYROXINE NA 25 MCG TABLET (FP) PO SCH (06:15)
[2021-03-03] MEDS: INSULIN SLIDING SCALE (NOVOLOG) 1 VIAL SQ SCH ×4 (06:20→22:18)
[2021-03-03 07:34] LABS: HEMATOCRIT 23.9 % (35.4-49); HEMOGLOBIN 8.2 GM/dL (11.7-16.9); MCH 30.8 pg (25.7-33.7); MCHC 34.4 g/dl (32.0-35.9); MEAN CELL VOLUME 89.7 fl (80-96); MEAN PLT VOLUME 10.6 fl (7.5-11.1); PLATELET COUNT 98 10^3/uL (134-434); RBC 2.67 M/mm3 (4.00-5.60); RDW 15.2 % (11.9-15.9); WHITE BLOOD COUNT 5.5 K/mm3 (4.0-10.0)
[2021-03-03 07:57] LABS: BLOOD UREA NITROGEN 26.1 mg/dL (7-18)
[2021-03-03 07:59] LABS: CALCIUM 7.5 mg/dL (8.5-10.1); MAGNESIUM 2.7 mg/dL (1.8-2.4)
[2021-03-03 08:00] LABS: CREATININE 1.2 mg/dL (0.55-1.3); PHOSPHOROUS 3.5 mg/dL (2.5-4.9)
[2021-03-03] MEDS: HYDROCORTISONE SOD SUCCINATE 100 MG/2 ML VIAL IVPB SCH ×3 (09:36→22:01)
[2021-03-03] MEDS: FOLIC ACID 1 MG TABLET (FP) PO SCH (09:37)
[2021-03-03] MEDS: PANTOPRAZOLE SODIUM 40 MG VIAL IVPUSH SCH ×2 (09:37→22:02)
[2021-03-03] MEDS: MULTIVITAMINS (DAILY MVI) TABLET (FP) PO SCH (09:37)
[2021-03-03] MEDS: IRON POLYSACCHARIDES 150 MG CAPSULE PO SCH (09:37)
[2021-03-03] MEDS: ASCORBIC ACID 500 MG TABLET (FP) PO SCH (09:37)
[2021-03-03 15:33] LABS: HEMATOCRIT 25.2 % (35.4-49); HEMOGLOBIN 8.6 GM/dL (11.7-16.9); MCH 30.6 pg (25.7-33.7); MCHC 34.2 g/dl (32.0-35.9); MEAN CELL VOLUME 89.6 fl (80-96); MEAN PLT VOLUME 10.4 fl (7.5-11.1); PLATELET COUNT 108 10^3/uL (134-434); RBC 2.81 M/mm3 (4.00-5.60); RDW 15.3 % (11.9-15.9); WHITE BLOOD COUNT 9.4 K/mm3 (4.0-10.0)
[2021-03-03] MEDS: ATORVASTATIN CA 40 MG TABLET (FP) PO SCH (21:46)
[2021-03-03] MEDS: MIRTAZAPINE 15 MG TABLET (FP) PO SCH (21:46)
[2021-03-04] MEDS ORDERED: PIPERACILLIN/TAZOBACTAM 3.375 GM VIAL IVPB ONE ×3 (01:06→17:35)
[2021-03-04] MEDS ORDERED: DEXTROSE 5%-WATER - 50 ML IVPB ONE ×3 (01:07→17:36)
[2021-03-04] MEDS: PIPERACILLIN/TAZOB 3.375 GM 3.375 GM in DEXTROSE 5%-WATER - 50 ML IVPB SCH ×3 (02:00→17:38)
[2021-03-04] MEDS: HYDROCORTISONE SOD SUCCINATE 100 MG/2 ML VIAL IVPB SCH ×4 (03:39→20:06)
[2021-03-04] MEDS: MAG HYDROX/AL HYDROX/SIMETH 30 ML UNIT-DOSE CUP PO SCH ×5 (05:22→23:19)
[2021-03-04] MEDS: THIAMINE HCL 200 MG/2 ML VIAL IVPB SCH ×3 (06:08→21:02)
[2021-03-04] MEDS: INSULIN SLIDING SCALE (NOVOLOG) 1 VIAL SQ SCH ×4 (06:10→21:06)
[2021-03-04] MEDS: LEVOTHYROXINE NA 25 MCG TABLET (FP) PO SCH (06:11)
[2021-03-04] MEDS: MULTIVITAMINS (DAILY MVI) TABLET (FP) PO SCH (09:03)
[2021-03-04] MEDS: FOLIC ACID 1 MG TABLET (FP) PO SCH (09:03)
[2021-03-04] MEDS: ASCORBIC ACID 500 MG TABLET (FP) PO SCH (09:03)
[2021-03-04] MEDS: IRON POLYSACCHARIDES 150 MG CAPSULE PO SCH (09:03)
[2021-03-04 09:14] LABS: HEMATOCRIT 24.1 % (35.4-49); HEMOGLOBIN 8.2 GM/dL (11.7-16.9); MCH 30.6 pg (25.7-33.7); MCHC 34.1 g/dl (32.0-35.9); MEAN CELL VOLUME 89.7 fl (80-96); MEAN PLT VOLUME 10.2 fl (7.5-11.1); PLATELET COUNT 106 10^3/uL (134-434); RBC 2.69 M/mm3 (4.00-5.60); RDW 15.5 % (11.9-15.9); WHITE BLOOD COUNT 6.9 K/mm3 (4.0-10.0)
[2021-03-04] MEDS: PANTOPRAZOLE SODIUM 40 MG VIAL IVPUSH SCH ×2 (09:33→21:02)
[2021-03-04 09:41] LABS: ALBUMIN 2.1 g/dl (3.4-5.0); BLOOD UREA NITROGEN 27.4 mg/dL (7-18); CALCIUM 7.4 mg/dL (8.5-10.1); MAGNESIUM 2.9 mg/dL (1.8-2.4)
[2021-03-04 09:45] LABS: CREATININE 1.3 mg/dL (0.55-1.3)
[2021-03-04 09:46] LABS: BILIRUBIN,TOTAL 0.3 mg/dL (0.2-1); TOT PROT 5.3 g/dl (6.4-8.2)
[2021-03-04] MEDS ORDERED: FUROSEMIDE 40 MG/4 ML INJECTABLE VIAL IVPUSH ONE (11:30)
[2021-03-04] MEDS: DEXTROSE 5%-NORMAL SALINE 1,000 ML IV SCH (11:55)
[2021-03-04] MEDS ORDERED: LEVOTHYROXINE NA 25 MCG TABLET (FP) PO ONE (12:30)
[2021-03-04] MEDS: ATORVASTATIN CA 40 MG TABLET (FP) PO SCH (21:02)
[2021-03-04] MEDS: MIRTAZAPINE 15 MG TABLET (FP) PO SCH (21:02)
[2021-03-05] MEDS ORDERED: DEXTROSE 5%-WATER - 50 ML IVPB ONE ×3 (01:05→17:13)
[2021-03-05] MEDS ORDERED: PIPERACILLIN/TAZOBACTAM 3.375 GM VIAL IVPB ONE ×3 (01:05→17:13)
[2021-03-05] MEDS: PIPERACILLIN/TAZOB 3.375 GM 3.375 GM in DEXTROSE 5%-WATER - 50 ML IVPB SCH ×3 (01:17→17:18)
[2021-03-05] MEDS: HYDROCORTISONE SOD SUCCINATE 100 MG/2 ML VIAL IVPB SCH ×3 (02:20→17:18)
[2021-03-05] MEDS: THIAMINE HCL 200 MG/2 ML VIAL IVPB SCH ×3 (05:11→21:29)
[2021-03-05] MEDS: MAG HYDROX/AL HYDROX/SIMETH 30 ML UNIT-DOSE CUP PO SCH ×3 (05:11→17:18)
[2021-03-05] MEDS: INSULIN SLIDING SCALE (NOVOLOG) 1 VIAL SQ SCH ×4 (06:49→21:39)
[2021-03-05] MEDS: LEVOTHYROXINE NA 50 MCG TABLET (FP) PO SCH (06:50)
[2021-03-05 07:04] LABS: HEMATOCRIT 21.9 % (35.4-49); HEMOGLOBIN 7.5 GM/dL (11.7-16.9); MCH 30.4 pg (25.7-33.7); MCHC 34.1 g/dl (32.0-35.9); MEAN CELL VOLUME 89.2 fl (80-96); PLATELET COUNT 96 10^3/uL (134-434); RBC 2.45 M/mm3 (4.00-5.60); RDW 15.3 % (11.9-15.9)
[2021-03-05 07:22] LABS: CALCIUM 7.3 mg/dL (8.5-10.1)
[2021-03-05 07:23] LABS: BLOOD UREA NITROGEN 30.5 mg/dL (7-18); MAGNESIUM 2.9 mg/dL (1.8-2.4)
[2021-03-05 07:26] LABS: CREATININE 1.5 mg/dL (0.55-1.3); PHOSPHOROUS 2.8 mg/dL (2.5-4.9)
[2021-03-05] MEDS: PANTOPRAZOLE SODIUM 40 MG VIAL IVPUSH SCH ×2 (10:14→21:29)
[2021-03-05] MEDS: ASCORBIC ACID 500 MG TABLET (FP) PO SCH (10:14)
[2021-03-05] MEDS: FOLIC ACID 1 MG TABLET (FP) PO SCH (10:14)
[2021-03-05] MEDS: IRON POLYSACCHARIDES 150 MG CAPSULE PO SCH (10:14)
[2021-03-05] MEDS: MULTIVITAMINS (DAILY MVI) TABLET (FP) PO SCH (10:14)
[2021-03-05] MEDS ORDERED: HYDROCORTISONE SOD SUCCINATE 100 MG/2 ML VIAL IVPB SCH (11:15)
[2021-03-05] MEDS ORDERED: HYDROCORTISONE 5 MG TABLET PO SCH ×2 (12:00)
[2021-03-05 12:15] LABS: HEMATOCRIT 23.9 % (35.4-49); MCH 30.3 pg (25.7-33.7); MCHC 33.6 g/dl (32.0-35.9); MEAN CELL VOLUME 90.2 fl (80-96); MEAN PLT VOLUME 10.1 fl (7.5-11.1); PLATELET COUNT 101 10^3/uL (134-434); RBC 2.65 M/mm3 (4.00-5.60); RDW 15.7 % (11.9-15.9); WHITE BLOOD COUNT 6.4 K/mm3 (4.0-10.0)
[2021-03-05 12:34] LABS: CALCIUM 7.5 mg/dL (8.5-10.1)
[2021-03-05 12:35] LABS: BLOOD UREA NITROGEN 27.2 mg/dL (7-18); MAGNESIUM 2.9 mg/dL (1.8-2.4)
[2021-03-05 12:38] LABS: CREATININE 1.4 mg/dL (0.55-1.3); PHOSPHOROUS 2.6 mg/dL (2.5-4.9)
[2021-03-05 21:20] LABS: HEMATOCRIT 28.2 % (35.4-49); HEMOGLOBIN 9.4 GM/dL (11.7-16.9); MCH 29.8 pg (25.7-33.7); MCHC 33.4 g/dl (32.0-35.9); MEAN CELL VOLUME 89.3 fl (80-96); MEAN PLT VOLUME 9.8 fl (7.5-11.1); PLATELET COUNT 92 10^3/uL (134-434); RBC 3.16 M/mm3 (4.00-5.60); RDW 15.3 % (11.9-15.9)
[2021-03-05] MEDS: ATORVASTATIN CA 40 MG TABLET (FP) PO SCH (21:28)
[2021-03-05] MEDS: MIRTAZAPINE 15 MG TABLET (FP) PO SCH (21:29)
[2021-03-06] MEDS: HYDROCORTISONE SOD SUCCINATE 100 MG/2 ML VIAL IVPB SCH ×3 (00:06→23:11)
[2021-03-06] MEDS ORDERED: PIPERACILLIN/TAZOBACTAM 3.375 GM VIAL IVPB ONE ×3 (00:07→17:13)
[2021-03-06] MEDS ORDERED: DEXTROSE 5%-WATER - 50 ML IVPB ONE ×3 (00:08→17:13)
[2021-03-06] MEDS: MAG HYDROX/AL HYDROX/SIMETH 30 ML UNIT-DOSE CUP PO SCH ×4 (00:09→17:52)
[2021-03-06] MEDS: PIPERACILLIN/TAZOB 3.375 GM 3.375 GM in DEXTROSE 5%-WATER - 50 ML IVPB SCH ×3 (02:32→17:52)
[2021-03-06] MEDS: THIAMINE HCL 200 MG/2 ML VIAL IVPB SCH ×3 (05:33→22:15)
[2021-03-06] MEDS: INSULIN SLIDING SCALE (NOVOLOG) 1 VIAL SQ SCH ×4 (06:01→22:23)
[2021-03-06] MEDS: LEVOTHYROXINE NA 50 MCG TABLET (FP) PO SCH (06:01)
[2021-03-06 07:29] LABS: HEMATOCRIT 29.1 % (35.4-49); HEMOGLOBIN 9.9 GM/dL (11.7-16.9); MCH 30.7 pg (25.7-33.7); MCHC 34.2 g/dl (32.0-35.9); MEAN CELL VOLUME 89.9 fl (80-96); MEAN PLT VOLUME 10.2 fl (7.5-11.1); PLATELET COUNT 112 10^3/uL (134-434); RBC 3.24 M/mm3 (4.00-5.60); RDW 15.4 % (11.9-15.9); WHITE BLOOD COUNT 7.3 K/mm3 (4.0-10.0)
[2021-03-06 07:51] LABS: CALCIUM 7.6 mg/dL (8.5-10.1)
[2021-03-06 07:52] LABS: BLOOD UREA NITROGEN 23.9 mg/dL (7-18); MAGNESIUM 3.1 mg/dL (1.8-2.4)
[2021-03-06 07:55] LABS: CREATININE 1.3 mg/dL (0.55-1.3); PHOSPHOROUS 2.4 mg/dL (2.5-4.9)
[2021-03-06] MEDS ORDERED: HYDROCORTISONE SOD SUCCINATE 100 MG/2 ML VIAL IVPB SCH (08:57)
[2021-03-06] MEDS: IRON POLYSACCHARIDES 150 MG CAPSULE PO SCH (10:15)
[2021-03-06] MEDS: FOLIC ACID 1 MG TABLET (FP) PO SCH (10:15)
[2021-03-06] MEDS: ASCORBIC ACID 500 MG TABLET (FP) PO SCH (10:15)
[2021-03-06] MEDS: MULTIVITAMINS (DAILY MVI) TABLET (FP) PO SCH (10:15)
[2021-03-06] MEDS: PANTOPRAZOLE SODIUM 40 MG VIAL IVPUSH SCH ×2 (10:15→22:13)
[2021-03-06] MEDS ORDERED: ALBUTEROL SO4 2.5/IPRATROPIUM 0.5 INH SOL 3 ML VIAL.NEB. NEB ONE ×3 (17:07→18:30)
[2021-03-06] MEDS ORDERED: PT OWN MED DRAWER 7, Y5N ONE (17:57)
[2021-03-06] MEDS ORDERED: FUROSEMIDE 40 MG/4 ML INJECTABLE VIAL IVPUSH ONE (19:07)
[2021-03-06] MEDS ORDERED: FUROSEMIDE 40 MG/4 ML INJECTABLE VIAL ONE (19:53)
[2021-03-06] MEDS: MIRTAZAPINE 15 MG TABLET (FP) PO SCH (22:14)
[2021-03-06] MEDS: ATORVASTATIN CA 40 MG TABLET (FP) PO SCH (22:14)
[2021-03-07] MEDS ORDERED: DEXTROSE 5%-WATER - 50 ML IVPB ONE ×2 (01:56→10:00)
[2021-03-07] MEDS ORDERED: PIPERACILLIN/TAZOBACTAM 3.375 GM VIAL IVPB ONE ×2 (01:56→10:00)
[2021-03-07] MEDS: PIPERACILLIN/TAZOB 3.375 GM 3.375 GM in DEXTROSE 5%-WATER - 50 ML IVPB SCH ×2 (02:24→10:09)
[2021-03-07] MEDS: MAG HYDROX/AL HYDROX/SIMETH 30 ML UNIT-DOSE CUP PO SCH ×5 (02:33→23:59)
[2021-03-07] MEDS: INSULIN SLIDING SCALE (NOVOLOG) 1 VIAL SQ SCH ×4 (06:13→21:30)
[2021-03-07] MEDS: THIAMINE HCL 200 MG/2 ML VIAL IVPB SCH ×3 (06:13→21:22)
[2021-03-07] MEDS: LEVOTHYROXINE NA 50 MCG TABLET (FP) PO SCH (06:13)
[2021-03-07 06:53] LABS: HEMATOCRIT 25.5 % (35.4-49); HEMOGLOBIN 8.9 GM/dL (11.7-16.9); MCH 31.3 pg (25.7-33.7); MCHC 34.9 g/dl (32.0-35.9); MEAN CELL VOLUME 89.8 fl (80-96); MEAN PLT VOLUME 9.9 fl (7.5-11.1); PLATELET COUNT 100 10^3/uL (134-434); RBC 2.84 M/mm3 (4.00-5.60); RDW 15.3 % (11.9-15.9)
[2021-03-07 07:36] LABS: BLOOD UREA NITROGEN 21.1 mg/dL (7-18); CALCIUM 7.3 mg/dL (8.5-10.1)
[2021-03-07 07:39] LABS: MAGNESIUM 2.7 mg/dL (1.8-2.4)
[2021-03-07 07:40] LABS: CREATININE 1.1 mg/dL (0.55-1.3); PHOSPHOROUS 2.9 mg/dL (2.5-4.9)
[2021-03-07] MEDS: ASCORBIC ACID 500 MG TABLET (FP) PO SCH (10:10)
[2021-03-07] MEDS: PANTOPRAZOLE SODIUM 40 MG VIAL IVPUSH SCH ×2 (10:11→21:23)
[2021-03-07] MEDS: HYDROCORTISONE SOD SUCCINATE 100 MG/2 ML VIAL IVPB SCH (10:11)
[2021-03-07] MEDS: MULTIVITAMINS (DAILY MVI) TABLET (FP) PO SCH (10:11)
[2021-03-07] MEDS: IRON POLYSACCHARIDES 150 MG CAPSULE PO SCH (10:11)
[2021-03-07] MEDS: FOLIC ACID 1 MG TABLET (FP) PO SCH (10:11)
[2021-03-07] MEDS ORDERED: FUROSEMIDE 40 MG/4 ML INJECTABLE VIAL IVPUSH ONE (16:04)
[2021-03-07 20:30] VITALS: BMI 26.3
[2021-03-07] MEDS: MIRTAZAPINE 15 MG TABLET (FP) PO SCH (21:22)
[2021-03-07] MEDS: ATORVASTATIN CA 40 MG TABLET (FP) PO SCH (21:23)
[2021-03-08] MEDS: THIAMINE HCL 200 MG/2 ML VIAL IVPB SCH ×3 (05:12→21:45)
[2021-03-08] MEDS: MAG HYDROX/AL HYDROX/SIMETH 30 ML UNIT-DOSE CUP PO SCH ×3 (05:12→17:07)
[2021-03-08] MEDS: LEVOTHYROXINE NA 50 MCG TABLET (FP) PO SCH (06:05)
[2021-03-08] MEDS: INSULIN SLIDING SCALE (NOVOLOG) 1 VIAL SQ SCH ×4 (06:05→22:22)
[2021-03-08 08:17] LABS: HEMATOCRIT 26.5 % (35.4-49); HEMOGLOBIN 9.1 GM/dL (11.7-16.9); MCH 30.9 pg (25.7-33.7); MCHC 34.2 g/dl (32.0-35.9); MEAN CELL VOLUME 90.4 fl (80-96); MEAN PLT VOLUME 9.9 fl (7.5-11.1); PLATELET COUNT 113 10^3/uL (134-434); RBC 2.93 M/mm3 (4.00-5.60); RDW 14.9 % (11.9-15.9); WHITE BLOOD COUNT 7.5 K/mm3 (4.0-10.0)
[2021-03-08 08:22] LABS: BLOOD UREA NITROGEN 18.5 mg/dL (7-18); CALCIUM 7.3 mg/dL (8.5-10.1)
[2021-03-08 08:23] LABS: MAGNESIUM 2.6 mg/dL (1.8-2.4)
[2021-03-08 08:26] LABS: CREATININE 1.1 mg/dL (0.55-1.3); PHOSPHOROUS 2.3 mg/dL (2.5-4.9)
[2021-03-08] MEDS: ASCORBIC ACID 500 MG TABLET (FP) PO SCH (09:18)
[2021-03-08] MEDS: IRON POLYSACCHARIDES 150 MG CAPSULE PO SCH (09:18)
[2021-03-08] MEDS: FOLIC ACID 1 MG TABLET (FP) PO SCH (09:18)
[2021-03-08] MEDS: MULTIVITAMINS (DAILY MVI) TABLET (FP) PO SCH (09:18)
[2021-03-08] MEDS: PANTOPRAZOLE SODIUM 40 MG VIAL IVPUSH SCH ×2 (10:10→21:39)
[2021-03-08] MEDS: HYDROCORTISONE SOD SUCCINATE 100 MG/2 ML VIAL IVPB SCH (10:10)
[2021-03-08 10:51] LABS: VENOUS O2 SATURATION 47.6 % (70-80); VENOUS PH 7.258 (7.310-7.410)
[2021-03-08] MEDS: LIOTHYRONINE SODIUM 5 MCG TABLET PO SCH (11:37)
[2021-03-08 13:08] LABS: ARTERIAL BLD GAS O2 SATURATION 96.8 % (95-98); ARTERIAL BLOOD GAS BASE EXCESS 5.8 mmol/L (-2-2); ARTERIAL BLOOD GAS PO2 91.4 mmHg (80-100); ARTERIAL BLOOD GAS pH 7.386 (7.350-7.450)
[2021-03-08 13:09] LABS: ALLENS TEST POSITIVE
[2021-03-08] MEDS: MIRTAZAPINE 15 MG TABLET (FP) PO SCH (21:39)
[2021-03-08] MEDS: ATORVASTATIN CA 40 MG TABLET (FP) PO SCH (21:39)
[2021-03-09] MEDS: MAG HYDROX/AL HYDROX/SIMETH 30 ML UNIT-DOSE CUP PO SCH ×4 (00:19→17:32)
[2021-03-09] MEDS: THIAMINE HCL 200 MG/2 ML VIAL IVPB SCH ×3 (06:24→21:41)
[2021-03-09] MEDS: LEVOTHYROXINE NA 50 MCG TABLET (FP) PO SCH (06:25)
[2021-03-09] MEDS: INSULIN SLIDING SCALE (NOVOLOG) 1 VIAL SQ SCH ×4 (06:42→21:43)
[2021-03-09 07:30] LABS: CALCIUM 7.4 mg/dL (8.5-10.1)
[2021-03-09 07:31] LABS: BLOOD UREA NITROGEN 16.5 mg/dL (7-18); MAGNESIUM 2.8 mg/dL (1.8-2.4)
[2021-03-09 07:34] LABS: CREATININE 0.8 mg/dL (0.55-1.3); PHOSPHOROUS 2.1 mg/dL (2.5-4.9)
[2021-03-09 07:35] LABS: HEMATOCRIT 24.7 % (35.4-49); HEMOGLOBIN 8.3 GM/dL (11.7-16.9); MCH 30.7 pg (25.7-33.7); MCHC 33.6 g/dl (32.0-35.9); MEAN CELL VOLUME 91.3 fl (80-96); PLATELET COUNT 116 10^3/uL (134-434); RBC 2.71 M/mm3 (4.00-5.60); RDW 15.1 % (11.9-15.9); WHITE BLOOD COUNT 5.5 K/mm3 (4.0-10.0)
[2021-03-09] MEDS ORDERED: PT OWN MED DRAWER 7, Y5N ONE (09:09)
[2021-03-09] MEDS: MULTIVITAMINS (DAILY MVI) TABLET (FP) PO SCH (09:39)
[2021-03-09] MEDS: ASCORBIC ACID 500 MG TABLET (FP) PO SCH (09:39)
[2021-03-09] MEDS: IRON POLYSACCHARIDES 150 MG CAPSULE PO SCH (09:39)
[2021-03-09] MEDS: FOLIC ACID 1 MG TABLET (FP) PO SCH (09:39)
[2021-03-09] MEDS: PANTOPRAZOLE SODIUM 40 MG VIAL IVPUSH SCH ×2 (09:40→21:41)
[2021-03-09] MEDS: LIOTHYRONINE SODIUM 5 MCG TABLET PO SCH (09:40)
[2021-03-09] MEDS: HYDROCORTISONE SOD SUCCINATE 100 MG/2 ML VIAL IVPB SCH (09:47)
[2021-03-09] MEDS ORDERED: FUROSEMIDE 40 MG/4 ML INJECTABLE VIAL IVPUSH ONE ×2 (11:49→18:00)
[2021-03-09 12:10] LABS: ALBUMIN 1.8 g/dl (3.4-5.0)
[2021-03-09] MEDS: MIRTAZAPINE 15 MG TABLET (FP) PO SCH (21:40)
[2021-03-09] MEDS: ATORVASTATIN CA 40 MG TABLET (FP) PO SCH (21:41)
[2021-03-10] MEDS: MAG HYDROX/AL HYDROX/SIMETH 30 ML UNIT-DOSE CUP PO SCH ×4 (04:51→17:47)
[2021-03-10] MEDS ORDERED: ALBUMIN HUMAN 25% 100 ML VIAL IVPB ONE ×2 (05:30→13:30)
[2021-03-10] MEDS ORDERED: PT OWN MED DRAWER 7, Y5N ONE ×2 (05:38→10:46)
[2021-03-10] MEDS: LEVOTHYROXINE NA 50 MCG TABLET (FP) PO SCH (06:09)
[2021-03-10] MEDS: INSULIN SLIDING SCALE (NOVOLOG) 1 VIAL SQ SCH ×4 (06:09→21:25)
[2021-03-10] MEDS: THIAMINE HCL 200 MG/2 ML VIAL IVPB SCH ×3 (06:39→21:25)
[2021-03-10 07:14] LABS: HEMATOCRIT 26.6 % (35.4-49); HEMOGLOBIN 9.2 GM/dL (11.7-16.9); MCH 31.2 pg (25.7-33.7); MCHC 34.8 g/dl (32.0-35.9); MEAN CELL VOLUME 89.8 fl (80-96); MEAN PLT VOLUME 9.5 fl (7.5-11.1); PLATELET COUNT 133 10^3/uL (134-434); RBC 2.96 M/mm3 (4.00-5.60); RDW 15.6 % (11.9-15.9)
[2021-03-10 07:37] LABS: CALCIUM 7.7 mg/dL (8.5-10.1)
[2021-03-10 07:38] LABS: BLOOD UREA NITROGEN 14.5 mg/dL (7-18); MAGNESIUM 2.5 mg/dL (1.8-2.4)
[2021-03-10 07:41] LABS: CREATININE 0.9 mg/dL (0.55-1.3); PHOSPHOROUS 2.2 mg/dL (2.5-4.9)
[2021-03-10] MEDS: MULTIVITAMINS (DAILY MVI) TABLET (FP) PO SCH (10:01)
[2021-03-10] MEDS: PANTOPRAZOLE SODIUM 40 MG VIAL IVPUSH SCH ×2 (10:01→21:25)
[2021-03-10] MEDS: ASCORBIC ACID 500 MG TABLET (FP) PO SCH (10:01)
[2021-03-10] MEDS: IRON POLYSACCHARIDES 150 MG CAPSULE PO SCH (10:01)
[2021-03-10] MEDS: FOLIC ACID 1 MG TABLET (FP) PO SCH (10:01)
[2021-03-10] MEDS: LIOTHYRONINE SODIUM 5 MCG TABLET PO SCH (13:57)
[2021-03-10 14:49] LABS: BF WBC & OTHER NUCLEATED CELLS 242 /mm3
[2021-03-10] MEDS: FUROSEMIDE 40 MG/4 ML INJECTABLE VIAL IVPUSH SCH (15:09)
[2021-03-10 16:09] LABS: BODY FLUID MONOCYTE 11 %; BODYL FLD EOSINOPHIL 1 %
[2021-03-10 16:10] LABS: BODY FLUID MESOTHELIAL 2 %
[2021-03-10] MEDS: MIRTAZAPINE 15 MG TABLET (FP) PO SCH (21:24)
[2021-03-10] MEDS: ATORVASTATIN CA 40 MG TABLET (FP) PO SCH (21:25)
[2021-03-11] MEDS: MAG HYDROX/AL HYDROX/SIMETH 30 ML UNIT-DOSE CUP PO SCH ×3 (00:50→14:58)
[2021-03-11] MEDS: LEVOTHYROXINE NA 50 MCG TABLET (FP) PO SCH (06:32)
[2021-03-11] MEDS: FUROSEMIDE 40 MG/4 ML INJECTABLE VIAL IVPUSH SCH ×2 (06:32→15:03)
[2021-03-11] MEDS: THIAMINE HCL 200 MG/2 ML VIAL IVPB SCH ×3 (06:32→21:52)
[2021-03-11] MEDS: INSULIN SLIDING SCALE (NOVOLOG) 1 VIAL SQ SCH ×3 (06:33→21:53)
[2021-03-11 07:05] LABS: BASO % 0.5 % (0-2.0); EOS % 6.1 % (0-4.5); HEMATOCRIT 25.9 % (35.4-49); HEMOGLOBIN 8.8 GM/dL (11.7-16.9); LYMPH % 16.7 % (8-40); MCH 30.8 pg (25.7-33.7); MCHC 34.1 g/dl (32.0-35.9); MEAN CELL VOLUME 90.3 fl (80-96); MEAN PLT VOLUME 9.6 fl (7.5-11.1); MONO % 9.6 % (3.8-10.2); NEUT % 67.1 % (42.8-82.8); PLATELET COUNT 132 10^3/uL (134-434); RBC 2.86 M/mm3 (4.00-5.60); RDW 15.3 % (11.9-15.9); WHITE BLOOD COUNT 6.4 K/mm3 (4.0-10.0)
[2021-03-11] MEDS ORDERED: ACETAMINOPHEN 1000 MG/100 ML BAG IVPB PRN (08:40)
[2021-03-11] MEDS ORDERED: PT OWN MED DRAWER 7, Y5N ONE (09:02)
[2021-03-11] MEDS: LIOTHYRONINE SODIUM 5 MCG TABLET PO SCH (09:08)
[2021-03-11] MEDS: FOLIC ACID 1 MG TABLET (FP) PO SCH (09:08)
[2021-03-11] MEDS: MULTIVITAMINS (DAILY MVI) TABLET (FP) PO SCH (09:08)
[2021-03-11] MEDS: ASCORBIC ACID 500 MG TABLET (FP) PO SCH (09:08)
[2021-03-11] MEDS: IRON POLYSACCHARIDES 150 MG CAPSULE PO SCH (09:08)
[2021-03-11] MEDS: PANTOPRAZOLE SODIUM 40 MG VIAL IVPUSH SCH ×2 (09:09→21:52)
[2021-03-11 09:46] LABS: BLOOD UREA NITROGEN 13.7 mg/dL (7-18); CREATININE 0.9 mg/dL (0.55-1.3)
[2021-03-11 09:47] LABS: BILIRUBIN,TOTAL 0.7 mg/dL (0.2-1); CALCIUM 7.9 mg/dL (8.5-10.1); TOT PROT 5.2 g/dl (6.4-8.2)
[2021-03-11 12:07] LABS: BF WBC & OTHER NUCLEATED CELLS 226 /mm3
[2021-03-11 13:14] LABS: BODY FLUID MACROPHAGES 31 %; BODY FLUID MESOTHELIAL 1 %
[2021-03-11] MEDS ORDERED: NAPH,MB-DB/K PH,MBDB POWDER PACKET PO ONE (14:23)
[2021-03-11] MEDS: MIRTAZAPINE 15 MG TABLET (FP) PO SCH (21:52)
[2021-03-11] MEDS: ATORVASTATIN CA 40 MG TABLET (FP) PO SCH (21:52)
[2021-03-12] MEDS: MAG HYDROX/AL HYDROX/SIMETH 30 ML UNIT-DOSE CUP PO SCH ×4 (01:00→18:39)
[2021-03-12] MEDS: LEVOTHYROXINE NA 50 MCG TABLET (FP) PO SCH (06:33)
[2021-03-12] MEDS: FUROSEMIDE 40 MG/4 ML INJECTABLE VIAL IVPUSH SCH (06:33)
[2021-03-12] MEDS: THIAMINE HCL 200 MG/2 ML VIAL IVPB SCH (06:33)
[2021-03-12] MEDS: INSULIN SLIDING SCALE (NOVOLOG) 1 VIAL SQ SCH ×4 (06:35→22:03)
[2021-03-12 07:29] LABS: HEMATOCRIT 28.8 % (35.4-49); HEMOGLOBIN 9.8 GM/dL (11.7-16.9); MCH 30.3 pg (25.7-33.7); MCHC 33.9 g/dl (32.0-35.9); MEAN CELL VOLUME 89.3 fl (80-96); MEAN PLT VOLUME 9.5 fl (7.5-11.1); PLATELET COUNT 146 10^3/uL (134-434); RBC 3.23 M/mm3 (4.00-5.60); RDW 15.6 % (11.9-15.9)
[2021-03-12] MEDS ORDERED: AMINO ACIDS/PROTEIN HYDROLYS 30 ML LIQUID.PKT PO SCH (08:00)
[2021-03-12] MEDS ORDERED: PT OWN MED DRAWER 7, Y5N ONE (08:56)
[2021-03-12 10:11] LABS: BLOOD UREA NITROGEN 11.5 mg/dL (7-18); CALCIUM 7.7 mg/dL (8.5-10.1); CREATININE 0.9 mg/dL (0.55-1.3); MAGNESIUM 2.3 mg/dL (1.8-2.4); PHOSPHOROUS 2.1 mg/dL (2.5-4.9)
[2021-03-12] MEDS: IRON POLYSACCHARIDES 150 MG CAPSULE PO SCH (10:38)
[2021-03-12] MEDS: FOLIC ACID 1 MG TABLET (FP) PO SCH (10:38)
[2021-03-12] MEDS: LIOTHYRONINE SODIUM 5 MCG TABLET PO SCH (10:38)
[2021-03-12] MEDS: MULTIVITAMINS (DAILY MVI) TABLET (FP) PO SCH (10:38)
[2021-03-12] MEDS: PANTOPRAZOLE SODIUM 40 MG VIAL IVPUSH SCH ×2 (10:38→22:04)
[2021-03-12] MEDS: ASCORBIC ACID 500 MG TABLET (FP) PO SCH (10:39)
[2021-03-12] MEDS ORDERED: NAPH,MB-DB/K PH,MBDB POWDER PACKET PO ONE (10:41)
[2021-03-12] MEDS: ACETAMINOPHEN 325 MG TABLET (FP) PO PRN ×2 (11:25→23:21)
[2021-03-12 13:07] LABS: BODY FLUID ALBUMIN 0.7 g/dL (Not Estab.)
[2021-03-12 13:07] LABS: BODY FLUID ALBUMIN 0.7 g/dL (Not Estab.)
[2021-03-12] MEDS ORDERED: THIAMINE HCL 100 MG TABLET (FP) PO SCH (14:00)
[2021-03-12] MEDS: AMINO ACIDS/PROTEIN HYDROLYS 30 ML LIQUID.PKT PO SCH (17:39)
[2021-03-12] MEDS: ATORVASTATIN CA 40 MG TABLET (FP) PO SCH (22:04)
[2021-03-12] MEDS: MIRTAZAPINE 15 MG TABLET (FP) PO SCH (22:04)
[2021-03-13] MEDS: LEVOTHYROXINE NA 50 MCG TABLET (FP) PO SCH (06:14)
[2021-03-13] MEDS: INSULIN SLIDING SCALE (NOVOLOG) 1 VIAL SQ SCH ×4 (06:14→22:00)
[2021-03-13] MEDS: MAG HYDROX/AL HYDROX/SIMETH 30 ML UNIT-DOSE CUP PO SCH ×5 (06:14→17:46)
[2021-03-13 08:37] LABS: HEMOGLOBIN 9.5 GM/dL (11.7-16.9); MCH 30.7 pg (25.7-33.7); MCHC 33.8 g/dl (32.0-35.9); MEAN CELL VOLUME 90.8 fl (80-96); MEAN PLT VOLUME 10.2 fl (7.5-11.1); PLATELET COUNT 143 10^3/uL (134-434); RBC 3.09 M/mm3 (4.00-5.60); RDW 15.7 % (11.9-15.9); WHITE BLOOD COUNT 6.8 K/mm3 (4.0-10.0)
[2021-03-13] MEDS ORDERED: PT OWN MED DRAWER 7, Y5N ONE (09:42)
[2021-03-13 10:00] LABS: BLOOD UREA NITROGEN 14.1 mg/dL (7-18); CALCIUM 7.7 mg/dL (8.5-10.1); CREATININE 0.9 mg/dL (0.55-1.3); MAGNESIUM 2.3 mg/dL (1.8-2.4); PHOSPHOROUS 2.1 mg/dL (2.5-4.9)
[2021-03-13] MEDS: FOLIC ACID 1 MG TABLET (FP) PO SCH (10:49)
[2021-03-13] MEDS: LIOTHYRONINE SODIUM 5 MCG TABLET PO SCH (10:49)
[2021-03-13] MEDS: AMINO ACIDS/PROTEIN HYDROLYS 30 ML LIQUID.PKT PO SCH ×2 (10:49→17:46)
[2021-03-13] MEDS: IRON POLYSACCHARIDES 150 MG CAPSULE PO SCH (10:51)
[2021-03-13] MEDS: PANTOPRAZOLE SODIUM 40 MG VIAL IVPUSH SCH ×2 (10:51→21:59)
[2021-03-13] MEDS: MULTIVITAMINS (DAILY MVI) TABLET (FP) PO SCH (10:51)
[2021-03-13] MEDS: THIAMINE HCL 100 MG TABLET (FP) PO SCH (10:51)
[2021-03-13] MEDS: ASCORBIC ACID 500 MG TABLET (FP) PO SCH (10:52)
[2021-03-13] MEDS: MIRTAZAPINE 15 MG TABLET (FP) PO SCH (21:59)
[2021-03-13] MEDS: ATORVASTATIN CA 40 MG TABLET (FP) PO SCH (22:00)
[2021-03-14] MEDS: INSULIN SLIDING SCALE (NOVOLOG) 1 VIAL SQ SCH ×4 (06:12→22:34)
[2021-03-14] MEDS: MAG HYDROX/AL HYDROX/SIMETH 30 ML UNIT-DOSE CUP PO SCH ×4 (06:31→18:10)
[2021-03-14] MEDS: LEVOTHYROXINE NA 50 MCG TABLET (FP) PO SCH (06:32)
[2021-03-14 07:42] LABS: HEMATOCRIT 29.8 % (35.4-49); HEMOGLOBIN 9.9 GM/dL (11.7-16.9); MCH 30.5 pg (25.7-33.7); MCHC 33.3 g/dl (32.0-35.9); MEAN CELL VOLUME 91.8 fl (80-96); MEAN PLT VOLUME 10.4 fl (7.5-11.1); PLATELET COUNT 163 10^3/uL (134-434); RBC 3.25 M/mm3 (4.00-5.60); RDW 15.8 % (11.9-15.9); WHITE BLOOD COUNT 6.9 K/mm3 (4.0-10.0)
[2021-03-14] MEDS: AMINO ACIDS/PROTEIN HYDROLYS 30 ML LIQUID.PKT PO SCH ×2 (10:14→18:12)
[2021-03-14] MEDS: THIAMINE HCL 100 MG TABLET (FP) PO SCH (10:14)
[2021-03-14] MEDS: IRON POLYSACCHARIDES 150 MG CAPSULE PO SCH (10:15)
[2021-03-14] MEDS: PANTOPRAZOLE SODIUM 40 MG VIAL IVPUSH SCH ×2 (10:15→22:33)
[2021-03-14] MEDS: FOLIC ACID 1 MG TABLET (FP) PO SCH (10:15)
[2021-03-14] MEDS: ASCORBIC ACID 500 MG TABLET (FP) PO SCH (10:15)
[2021-03-14] MEDS: MULTIVITAMINS (DAILY MVI) TABLET (FP) PO SCH (10:15)
[2021-03-14] MEDS: LIOTHYRONINE SODIUM 5 MCG TABLET PO SCH (10:16)
[2021-03-14 11:04] LABS: BLOOD UREA NITROGEN 16.1 mg/dL (7-18); CALCIUM 8.3 mg/dL (8.5-10.1); CREATININE 0.8 mg/dL (0.55-1.3); MAGNESIUM 2.5 mg/dL (1.8-2.4); PHOSPHOROUS 2.3 mg/dL (2.5-4.9)
[2021-03-14 12:47] LABS: ALBUMIN 2.2 g/dl (3.4-5.0)
[2021-03-14] MEDS: SODIUM ZIRCONIUM CYCLOSILICATE (LOKELMA) 5 GM PACKET PO SCH (15:31)
[2021-03-14] MEDS ORDERED: PT OWN MED DRAWER 7, Y5N ONE (18:05)
[2021-03-14 20:08] LABS: MAGNESIUM 2.5 mg/dL (1.8-2.4); PHOSPHOROUS 2.2 mg/dL (2.5-4.9)
[2021-03-14] MEDS: MIRTAZAPINE 15 MG TABLET (FP) PO SCH (22:33)
[2021-03-14] MEDS: ATORVASTATIN CA 40 MG TABLET (FP) PO SCH (22:33)
[2021-03-14 23:20] LABS: ALBUMIN 2.4 g/dl (3.4-5.0)
[2021-03-15] MEDS: MAG HYDROX/AL HYDROX/SIMETH 30 ML UNIT-DOSE CUP PO SCH ×5 (06:35→23:05)
[2021-03-15] MEDS: INSULIN SLIDING SCALE (NOVOLOG) 1 VIAL SQ SCH ×4 (06:35→22:56)
[2021-03-15] MEDS: LEVOTHYROXINE NA 50 MCG TABLET (FP) PO SCH (06:35)
[2021-03-15 07:31] LABS: CALCIUM 8.7 mg/dL (8.5-10.1)
[2021-03-15 07:32] LABS: BLOOD UREA NITROGEN 17.9 mg/dL (7-18); MAGNESIUM 2.3 mg/dL (1.8-2.4)
[2021-03-15 07:34] LABS: HEMATOCRIT 30.8 % (35.4-49); HEMOGLOBIN 10.4 GM/dL (11.7-16.9); MCH 30.9 pg (25.7-33.7); MCHC 33.8 g/dl (32.0-35.9); MEAN CELL VOLUME 91.2 fl (80-96); MEAN PLT VOLUME 10.2 fl (7.5-11.1); PLATELET COUNT 191 10^3/uL (134-434); RBC 3.37 M/mm3 (4.00-5.60); WHITE BLOOD COUNT 7.1 K/mm3 (4.0-10.0)
[2021-03-15 07:35] LABS: CREATININE 0.9 mg/dL (0.55-1.3); PHOSPHOROUS 2.4 mg/dL (2.5-4.9)
[2021-03-15] MEDS: AMINO ACIDS/PROTEIN HYDROLYS 30 ML LIQUID.PKT PO SCH ×2 (10:27→17:15)
[2021-03-15] MEDS: THIAMINE HCL 100 MG TABLET (FP) PO SCH (10:27)
[2021-03-15] MEDS: FOLIC ACID 1 MG TABLET (FP) PO SCH (10:27)
[2021-03-15] MEDS: IRON POLYSACCHARIDES 150 MG CAPSULE PO SCH (10:27)
[2021-03-15] MEDS: PANTOPRAZOLE SODIUM 40 MG VIAL IVPUSH SCH ×2 (10:27→22:49)
[2021-03-15] MEDS: MULTIVITAMINS (DAILY MVI) TABLET (FP) PO SCH (10:27)
[2021-03-15] MEDS: ASCORBIC ACID 500 MG TABLET (FP) PO SCH (10:28)
[2021-03-15] MEDS: SODIUM ZIRCONIUM CYCLOSILICATE (LOKELMA) 5 GM PACKET PO SCH (10:29)
[2021-03-15] MEDS ORDERED: PT OWN MED DRAWER 7, Y5N ONE (10:52)
[2021-03-15] MEDS: LIOTHYRONINE SODIUM 5 MCG TABLET PO SCH (11:56)
[2021-03-15] MEDS ORDERED: NAPH,MB-DB/K PH,MBDB POWDER PACKET PO ONE (19:51)
[2021-03-15] MEDS: MIRTAZAPINE 15 MG TABLET (FP) PO SCH (22:49)
[2021-03-15] MEDS: ATORVASTATIN CA 40 MG TABLET (FP) PO SCH (22:49)
[2021-03-16 06:49] LABS: BASO % 0.6 % (0-2.0); EOS % 5.6 % (0-4.5); HEMATOCRIT 26.8 % (35.4-49); HEMOGLOBIN 9.1 GM/dL (11.7-16.9); LYMPH % 17.6 % (8-40); MCH 30.8 pg (25.7-33.7); MCHC 34.1 g/dl (32.0-35.9); MEAN CELL VOLUME 90.4 fl (80-96); MEAN PLT VOLUME 10.1 fl (7.5-11.1); MONO % 9.3 % (3.8-10.2); NEUT % 66.9 % (42.8-82.8); PLATELET COUNT 155 10^3/uL (134-434); RBC 2.96 M/mm3 (4.00-5.60); RDW 15.9 % (11.9-15.9); WHITE BLOOD COUNT 6.2 K/mm3 (4.0-10.0)
[2021-03-16] MEDS: INSULIN SLIDING SCALE (NOVOLOG) 1 VIAL SQ SCH ×4 (06:55→21:53)
[2021-03-16] MEDS: MAG HYDROX/AL HYDROX/SIMETH 30 ML UNIT-DOSE CUP PO SCH ×4 (06:55→23:13)
[2021-03-16] MEDS: LEVOTHYROXINE NA 50 MCG TABLET (FP) PO SCH (06:56)
[2021-03-16 07:06] LABS: BLOOD UREA NITROGEN 16.9 mg/dL (7-18); CALCIUM 8.2 mg/dL (8.5-10.1)
[2021-03-16 07:07] LABS: ALBUMIN 1.9 g/dl (3.4-5.0); MAGNESIUM 2.1 mg/dL (1.8-2.4)
[2021-03-16 07:10] LABS: CREATININE 0.8 mg/dL (0.55-1.3); PHOSPHOROUS 2.9 mg/dL (2.5-4.9)
[2021-03-16 07:11] LABS: BILIRUBIN,TOTAL 0.4 mg/dL (0.2-1); TOT PROT 5.3 g/dl (6.4-8.2)
[2021-03-16] MEDS: LIOTHYRONINE SODIUM 5 MCG TABLET PO SCH (10:04)
[2021-03-16] MEDS: SODIUM ZIRCONIUM CYCLOSILICATE (LOKELMA) 5 GM PACKET PO SCH (10:04)
[2021-03-16] MEDS: ASCORBIC ACID 500 MG TABLET (FP) PO SCH (10:05)
[2021-03-16] MEDS: IRON POLYSACCHARIDES 150 MG CAPSULE PO SCH (10:05)
[2021-03-16] MEDS: THIAMINE HCL 100 MG TABLET (FP) PO SCH (10:05)
[2021-03-16] MEDS: MULTIVITAMINS (DAILY MVI) TABLET (FP) PO SCH (10:05)
[2021-03-16] MEDS: PANTOPRAZOLE SODIUM 40 MG VIAL IVPUSH SCH ×2 (10:05→21:52)
[2021-03-16] MEDS: FOLIC ACID 1 MG TABLET (FP) PO SCH (10:05)
[2021-03-16] MEDS: AMINO ACIDS/PROTEIN HYDROLYS 30 ML LIQUID.PKT PO SCH ×2 (10:05→18:01)
[2021-03-16] MEDS ORDERED: INSULIN (NOVOLOG) ASPART 100 UNITS/ML 10ML VIAL ONE (11:29)
[2021-03-16] MEDS: MIRTAZAPINE 15 MG TABLET (FP) PO SCH (21:52)
[2021-03-16] MEDS: ATORVASTATIN CA 40 MG TABLET (FP) PO SCH (21:52)
[2021-03-17] MEDS: ACETAMINOPHEN 325 MG TABLET (FP) PO PRN (00:48)
[2021-03-17] MEDS: LEVOTHYROXINE NA 50 MCG TABLET (FP) PO SCH (06:01)
[2021-03-17] MEDS: INSULIN SLIDING SCALE (NOVOLOG) 1 VIAL SQ SCH ×4 (06:01→21:05)
[2021-03-17] MEDS: MAG HYDROX/AL HYDROX/SIMETH 30 ML UNIT-DOSE CUP PO SCH ×4 (06:01→23:39)
[2021-03-17 07:42] LABS: HEMATOCRIT 28.1 % (35.4-49); HEMOGLOBIN 9.7 GM/dL (11.7-16.9); MCH 30.9 pg (25.7-33.7); MCHC 34.4 g/dl (32.0-35.9); MEAN PLT VOLUME 10.2 fl (7.5-11.1); PLATELET COUNT 160 10^3/uL (134-434); RBC 3.13 M/mm3 (4.00-5.60); WHITE BLOOD COUNT 5.9 K/mm3 (4.0-10.0)
[2021-03-17 07:44] LABS: BLOOD UREA NITROGEN 18.5 mg/dL (7-18); CALCIUM 8.5 mg/dL (8.5-10.1); MAGNESIUM 2.2 mg/dL (1.8-2.4)
[2021-03-17 07:47] LABS: CREATININE 0.9 mg/dL (0.55-1.3); PHOSPHOROUS 3.1 mg/dL (2.5-4.9)
[2021-03-17] MEDS ORDERED: PT OWN MED DRAWER 7, Y5N ONE (09:12)
[2021-03-17] MEDS: IRON POLYSACCHARIDES 150 MG CAPSULE PO SCH (09:34)
[2021-03-17] MEDS: FOLIC ACID 1 MG TABLET (FP) PO SCH (09:34)
[2021-03-17] MEDS: MULTIVITAMINS (DAILY MVI) TABLET (FP) PO SCH (09:34)
[2021-03-17] MEDS: AMINO ACIDS/PROTEIN HYDROLYS 30 ML LIQUID.PKT PO SCH ×2 (09:34→17:33)
[2021-03-17] MEDS: PANTOPRAZOLE SODIUM 40 MG VIAL IVPUSH SCH ×2 (09:34→21:05)
[2021-03-17] MEDS: THIAMINE HCL 100 MG TABLET (FP) PO SCH (09:35)
[2021-03-17] MEDS: ASCORBIC ACID 500 MG TABLET (FP) PO SCH (09:35)
[2021-03-17] MEDS: LIOTHYRONINE SODIUM 5 MCG TABLET PO SCH (09:35)
[2021-03-17] MEDS: SODIUM ZIRCONIUM CYCLOSILICATE (LOKELMA) 5 GM PACKET PO SCH (09:38)
[2021-03-17] MEDS: ATORVASTATIN CA 40 MG TABLET (FP) PO SCH (21:04)
[2021-03-17] MEDS: MIRTAZAPINE 15 MG TABLET (FP) PO SCH (21:05)
[2021-03-17] MEDS ORDERED: INSULIN (LEVEMIR) 100 UNITS/ML UNITS SQ SCH (22:00)
[2021-03-18] MEDS: ACETAMINOPHEN 325 MG TABLET (FP) PO PRN (04:00)
[2021-03-18] MEDS: MAG HYDROX/AL HYDROX/SIMETH 30 ML UNIT-DOSE CUP PO SCH ×2 (05:49→12:24)
[2021-03-18] MEDS: INSULIN SLIDING SCALE (NOVOLOG) 1 VIAL SQ SCH ×2 (06:03→11:54)
[2021-03-18] MEDS: LEVOTHYROXINE NA 50 MCG TABLET (FP) PO SCH (06:03)
[2021-03-18 07:34] LABS: HEMATOCRIT 26.7 % (35.4-49); MCH 30.3 pg (25.7-33.7); MCHC 33.7 g/dl (32.0-35.9); MEAN PLT VOLUME 10.4 fl (7.5-11.1); PLATELET COUNT 152 10^3/uL (134-434); RBC 2.97 M/mm3 (4.00-5.60); RDW 15.8 % (11.9-15.9); WHITE BLOOD COUNT 5.5 K/mm3 (4.0-10.0)
[2021-03-18 08:17] LABS: BLOOD UREA NITROGEN 19.9 mg/dL (7-18); CALCIUM 8.2 mg/dL (8.5-10.1)
[2021-03-18 08:18] LABS: MAGNESIUM 2.2 mg/dL (1.8-2.4)
[2021-03-18 08:20] LABS: CREATININE 0.7 mg/dL (0.55-1.3); PHOSPHOROUS 3.6 mg/dL (2.5-4.9)
[2021-03-18 08:21] LABS: BILIRUBIN,TOTAL 0.4 mg/dL (0.2-1); TOT PROT 5.2 g/dl (6.4-8.2)
[2021-03-18] MEDS: AMINO ACIDS/PROTEIN HYDROLYS 30 ML LIQUID.PKT PO SCH (08:40)
[2021-03-18] MEDS ORDERED: PT OWN MED DRAWER 7, Y5N ONE (09:19)
[2021-03-18] MEDS: PANTOPRAZOLE SODIUM 40 MG VIAL IVPUSH SCH (10:05)
[2021-03-18] MEDS: THIAMINE HCL 100 MG TABLET (FP) PO SCH (10:05)
[2021-03-18] MEDS: ASCORBIC ACID 500 MG TABLET (FP) PO SCH (10:06)
[2021-03-18] MEDS: MULTIVITAMINS (DAILY MVI) TABLET (FP) PO SCH (10:06)
[2021-03-18] MEDS: SODIUM ZIRCONIUM CYCLOSILICATE (LOKELMA) 5 GM PACKET PO SCH (10:06)
[2021-03-18] MEDS: IRON POLYSACCHARIDES 150 MG CAPSULE PO SCH (10:06)
[2021-03-18] MEDS: FOLIC ACID 1 MG TABLET (FP) PO SCH (10:06)
[2021-03-18] MEDS: LIOTHYRONINE SODIUM 5 MCG TABLET PO SCH (10:07)
[2021-03-18 13:59] VITALS: BP 106/82; PULSE 84; TEMP 95.7
== END 2021-03-18 14:30 | DRG 377 ==
LOC: JER 14:02 → JERBED 16:40 → J4W 02-25 04:07
PROVIDERS: ADMIT Internal Medicine; ATTEND Internal Medicine
PROC: 30233N1 Transfusion of Nonautologous Red Blood Cells into Peripheral Vein, Percutaneous Approach (ICD-10-PCS; 2021-02-24)
PROC: 30233R1 Transfusion of Nonautologous Platelets into Peripheral Vein, Percutaneous Approach (ICD-10-PCS; 2021-02-24)
PROC: 0DJ08ZZ Inspection of Upper Intestinal Tract, Via Natural or Artificial Opening Endoscopic (ICD-10-PCS; 2021-02-26)
PROC: 0W9B3ZZ Drainage of Left Pleural Cavity, Percutaneous Approach (ICD-10-PCS; 2021-03-10)
PROC: 0W993ZZ Drainage of Right Pleural Cavity, Percutaneous Approach (ICD-10-PCS; principal; 2021-03-11)
PROC: 0WPB30Z Removal of Drainage Device from Left Pleural Cavity, Percutaneous Approach (ICD-10-PCS; 2021-03-14)
PROC: 0WP930Z Removal of Drainage Device from Right Pleural Cavity, Percutaneous Approach (ICD-10-PCS; 2021-03-14)
DX: K26.4 Chronic or unspecified duodenal ulcer with hemorrhage (principal); A41.9 Sepsis, unspecified organism; G93.41 Metabolic encephalopathy; J96.01 Acute respiratory failure with hypoxia; I50.43 Acute on chronic combined systolic (congestive) and diastolic (congestive) heart failure; G45.8 Other transient cerebral ischemic attacks and related syndromes; I97.89 Other postprocedural complications and disorders of the circulatory system, not elsewhere classified; G93.40 Encephalopathy, unspecified; D62 Acute posthemorrhagic anemia; E87.2 Acidosis; J98.11 Atelectasis; D69.3 Immune thrombocytopenic purpura; R18.8 Other ascites; G45.9 Transient cerebral ischemic attack, unspecified; E46 Unspecified protein-calorie malnutrition; J90 Pleural effusion, not elsewhere classified; K92.0 Hematemesis; E11.65 Type 2 diabetes mellitus with hyperglycemia; E11.40 Type 2 diabetes mellitus with diabetic neuropathy, unspecified; I11.0 Hypertensive heart disease with heart failure; E07.9 Disorder of thyroid, unspecified; E78.5 Hyperlipidemia, unspecified; E03.9 Hypothyroidism, unspecified; D69.6 Thrombocytopenia, unspecified; E53.8 Deficiency of other specified B group vitamins; E87.5 Hyperkalemia; R63.0 Anorexia; I95.9 Hypotension, unspecified; E88.09 Other disorders of plasma-protein metabolism, not elsewhere classified; T88.51XA Hypothermia following anesthesia, initial encounter; E87.70 Fluid overload, unspecified; I35.1 Nonrheumatic aortic (valve) insufficiency; I34.0 Nonrheumatic mitral (valve) insufficiency; Y83.9 Surgical procedure, unspecified as the cause of abnormal reaction of the patient, or of later complication, without mention of misadventure at the time of the procedure
CPT/HCPCS: 32557; 36415; 36430; 36511; 36600; 70450-TC; 70551-TC; 71045-TC-FY; 71046-TC-FY; 71250-TC; 74018-TC-FY; 80048; 80053; 80061; 81003; 82024; 82040; 82042; 82150; 82272; 82533; 82550; 82607; 82728; 82746; 82803; 82945; 82962; 83036; 83540; 83550; 83605; 83615; 83690; 83735; 83880; 83986; 84100; 84157; 84439; 84443; 84478; 84481; 84484; 85025; 85027; 85045; 85610; 85730; 86140; 86850; 86900; 86901; 86922; 87040; 87070; 87075; 87086; 87102; 87116; 87205; 87206; 87210; 88108; 88305-TC; 93005; 93010; 94010; 94640; 94660; 97116-GP; 97162-GP; 99285-25; C9803; J0131; J0834; P9034; P9038; P9058; U0003; U0005

== ENCOUNTER 2021-03-29 03:20 | Inpatient (IN) | payer OTHER ==
[2021-03-29] MEDS ORDERED: CALCIUM CHLORIDE 1 GM/10 ML *DISP.SYRIN ONE (03:26)
[2021-03-29] MEDS ORDERED: NOREPINEPHRINE BITARTRATE 4 MG/4 ML ML IV ONE (03:32)
[2021-03-29 03:57] LABS: HEMATOCRIT 34.2 % (35.4-49); HEMOGLOBIN 10.9 GM/dL (11.7-16.9); MCH 29.5 pg (25.7-33.7); MEAN CELL VOLUME 92.3 fl (80-96); MEAN PLT VOLUME 10.3 fl (7.5-11.1); RDW 18.2 % (11.9-15.9); WHITE BLOOD COUNT 11.2 K/mm3 (4.0-10.0)
[2021-03-29 03:58] LABS: ARTERIAL BLD GAS O2 SATURATION 97.4 % (95-98); ARTERIAL BLOOD GAS BASE EXCESS -17.9 mmol/L (-2-2); ARTERIAL BLOOD GAS PO2 162.4 mmHg (80-100)
[2021-03-29 04:00] LABS: ARTERIAL BLOOD GAS pH 6.891 (7.350-7.450)
[2021-03-29 04:04] LABS: INR 1.16 (0.83-1.09); PROTHROMBIN TIME (PATIENT) 13.6 SEC (9.7-13.0)
[2021-03-29 04:07] LABS: ACTIVATED PTT 29.8 SECONDS (25.2-36.5)
[2021-03-29 04:16] LABS: CHLORIDE 106 mmol/L (98-107); SODIUM 138 mmol/L (136-145)
[2021-03-29 04:20] LABS: ALBUMIN 2.2 g/dl (3.4-5.0); ANION GAP 16 MMOL/L (8-16); BLOOD UREA NITROGEN 33.7 mg/dL (7-18); CO2 16 mmol/L (21-32); GLUCOSE,RANDOM 178 mg/dL (74-106)
[2021-03-29 04:22] LABS: SGPT/ALT 54 U/L (13-61)
[2021-03-29 04:23] LABS: CREATININE 1.6 mg/dL (0.55-1.3); SGOT/AST 89 U/L (15-37)
[2021-03-29 04:24] LABS: BILIRUBIN,TOTAL 0.3 mg/dL (0.2-1); TOT PROT 6.1 g/dl (6.4-8.2)
[2021-03-29] MEDS ORDERED: VANCOMYCIN 1 GM in D5W (PRE-DOCKED) 1,000 MG/250 ML IVPB ONE (04:26)
[2021-03-29] MEDS ORDERED: PIPERACILLIN/TAZOB 4.5 GM 4.5 GM in DEXTROSE 5%-WATER 100 ML IVPB ONE (04:26)
[2021-03-29] MEDS ORDERED: PIPERACILLIN/TAZOB 4.5 GM 4.5 GM/100 ML BAG IVPB ONE (04:46)
[2021-03-29] MEDS ORDERED: VANCOMYCIN 1 GRAM (PRE-DOCKED) 1,000 MG/250 ML BAG IVPB ONE (04:47)
[2021-03-29 05:03] LABS: EPI CELLS 31 /uL (0-25.1); HYALINE CASTS 8 /uL (0-3.1); URINE APPEARANCE TURBID; URINE BACTERIA 862 /uL (0-1359); URINE BILIRUBIN 1+ (NEGATIVE); URINE COLOR ORANGE; URINE GLUCOSE (UA) NEGATIVE (NEGATIVE); URINE KETONE NEGATIVE (NEGATIVE); URINE LEUK ESTERASE 1+ (NEGATIVE); URINE NITRITE NEGATIVE (NEGATIVE); URINE PROTEIN 1+ (NEGATIVE); URINE RBC 7126 /uL (0-23.9); URINE UROBILINOGEN 0.2 mg/dL (0.2-1.0); URINE WBC 83 /uL (0-25.8)
[2021-03-29 05:22] LABS: LACTIC ACID 10.3 mmol/L (0.4-2.0)
[2021-03-29 05:23] LABS: ALK PHOS 137 U/L (45-117)
[2021-03-29] MEDS: PROPOFOL 1,000,000 MCG/100 ML VIAL IVPB SCH (05:30)
[2021-03-29 06:04] LABS: ARTERIAL BLOOD GAS BASE EXCESS -13.9 mmol/L (-2-2); ARTERIAL BLOOD GAS PO2 154.6 mmHg (80-100)
[2021-03-29 06:09] LABS: ALLENS TEST POSITIVE; ARTERIAL BLOOD GAS pH 7.053 (7.350-7.450); VENT MODE A/C; VENT RATE 18
[2021-03-29] MEDS: NOREPINEPHRINE D5W PREMIX 16,000 MCG/500 ML BAG IVPB SCH (06:24)
[2021-03-29] MEDS ORDERED: SODIUM CHLORIDE 0.9% 500 ML INFUS.BAG IV ONE ×3 (06:28→06:46)
[2021-03-29 09:21] LABS: HEMATOCRIT 31.8 % (35.4-49); HEMOGLOBIN 10.6 GM/dL (11.7-16.9); MCH 29.6 pg (25.7-33.7); MCHC 33.3 g/dl (32.0-35.9); MEAN CELL VOLUME 88.8 fl (80-96); MEAN PLT VOLUME 9.5 fl (7.5-11.1); PLATELET COUNT 117 10^3/uL (134-434); RBC 3.57 M/mm3 (4.00-5.60); RDW 17.8 % (11.9-15.9); WHITE BLOOD COUNT 10.4 K/mm3 (4.0-10.0)
[2021-03-29] MEDS ORDERED: PIPERACILLIN/TAZOB 3.375 GM 3.375 GM in DEXTROSE 5%-WATER - 50 ML IVPB SCH ×2 (10:15→18:00)
[2021-03-29] MEDS ORDERED: VANCOMYCIN 1 GM in D5W (PRE-DOCKED) 1,000 MG/250 ML IVPB SCH (10:30)
[2021-03-29] MEDS: MUPIROCIN 2% TOPICAL OINTMENT FOR DECOLONIZATION NS SCH ×2 (10:45→23:01)
[2021-03-29] MEDS: SODIUM CHLORIDE 1,000 ML IV SCH (10:46)
[2021-03-29] MEDS ORDERED: DEXTROSE 5%-WATER - 50 ML IVPB ONE ×2 (10:49→17:06)
[2021-03-29] MEDS ORDERED: PIPERACILLIN/TAZOBACTAM 3.375 GM VIAL IVPB ONE ×2 (10:49→17:06)
[2021-03-29] MEDS: THIAMINE HCL 200 MG/2 ML VIAL IVPB SCH (10:55)
[2021-03-29] MEDS: PANTOPRAZOLE SODIUM 40 MG VIAL IVPUSH SCH (10:56)
[2021-03-29 10:59] LABS: CHLORIDE 103 mmol/L (98-107); SODIUM 138 mmol/L (136-145)
[2021-03-29 11:01] LABS: ANION GAP 14 MMOL/L (8-16); BLOOD UREA NITROGEN 36.5 mg/dL (7-18); CALCIUM 9.2 mg/dL (8.5-10.1); CO2 21 mmol/L (21-32); GLUCOSE,RANDOM 233 mg/dL (74-106)
[2021-03-29 11:05] LABS: CREATININE 1.8 mg/dL (0.55-1.3); PHOSPHOROUS 5.7 mg/dL (2.5-4.9); SGOT/AST 104 U/L (15-37); SGPT/ALT 65 U/L (13-61); TOT PROT 5.7 g/dl (6.4-8.2)
[2021-03-29 11:06] LABS: BILIRUBIN,TOTAL 0.8 mg/dL (0.2-1)
[2021-03-29 11:08] LABS: ALK PHOS 124 U/L (45-117)
[2021-03-29 11:16] LABS: LACTIC ACID 5.7 mmol/L (0.4-2.0)
[2021-03-29 11:47] LABS: ANISOCYTOSIS 0; HELMET CELLS 0; HOWELL-JOLLY BODIES 0; MACROCYTOSIS 0; OVALOCYTE 0; PLATELET ESTIMATE DECREASED; ROULEAU 0; SICKELED CELLS 0; TARGET CELLS 0; TEAR DROP CELLS 0; TOXIC GRANULATION 0
[2021-03-29] MEDS: INSULIN SLIDING SCALE (NOVOLOG) 1 VIAL SQ SCH ×2 (14:42→17:32)
[2021-03-29] MEDS: LEVOTHYROXINE NA 75 MCG TABLET (FP) PO SCH (14:43)
[2021-03-29] MEDS: PIPERACILLIN/TAZOB 3.375 GM 3.375 GM in DEXTROSE 5%-WATER - 50 ML IVPB SCH (17:20)
[2021-03-29] MEDS: CHLORHEXIDINE GLUCONATE 4% CLEANSER FOR DECOLONIZATION TP SCH (23:02)
[2021-03-30] MEDS: ATORVASTATIN CA 40 MG TABLET (FP) PO SCH
[2021-03-30] MEDS ORDERED: PIPERACILLIN/TAZOBACTAM 3.375 GM VIAL IVPB ONE ×3 (00:14→17:06)
[2021-03-30] MEDS ORDERED: DEXTROSE 5%-WATER - 50 ML IVPB ONE ×3 (00:15→17:06)
[2021-03-30] MEDS: INSULIN SLIDING SCALE (NOVOLOG) 1 VIAL SQ SCH ×4 (01:52→17:15)
[2021-03-30] MEDS: PIPERACILLIN/TAZOB 3.375 GM 3.375 GM in DEXTROSE 5%-WATER - 50 ML IVPB SCH ×3 (01:53→17:10)
[2021-03-30] MEDS ORDERED: VANCOMYCIN 1 GM in D5W (PRE-DOCKED) 1,000 MG/250 ML IVPB SCH (06:00)
[2021-03-30] MEDS: PROPOFOL 1,000,000 MCG/100 ML VIAL IVPB SCH (06:05)
[2021-03-30 06:50] LABS: HEMATOCRIT 29.3 % (35.4-49); HEMOGLOBIN 9.9 GM/dL (11.7-16.9); MCH 29.8 pg (25.7-33.7); MCHC 33.9 g/dl (32.0-35.9); MEAN CELL VOLUME 87.7 fl (80-96); MEAN PLT VOLUME 9.5 fl (7.5-11.1); PLATELET COUNT 105 10^3/uL (134-434); RBC 3.34 M/mm3 (4.00-5.60); RDW 16.6 % (11.9-15.9); WHITE BLOOD COUNT 14.1 K/mm3 (4.0-10.0)
[2021-03-30] MEDS: LEVOTHYROXINE NA 75 MCG TABLET (FP) PO SCH (07:08)
[2021-03-30 07:13] LABS: CALCIUM 7.9 mg/dL (8.5-10.1)
[2021-03-30 07:14] LABS: BLOOD UREA NITROGEN 39.7 mg/dL (7-18); MAGNESIUM 1.8 mg/dL (1.8-2.4)
[2021-03-30 07:17] LABS: CREATININE 2.2 mg/dL (0.55-1.3); PHOSPHOROUS 3.5 mg/dL (2.5-4.9)
[2021-03-30 07:19] LABS: BILIRUBIN,TOTAL 0.7 mg/dL (0.2-1); TOT PROT 5.2 g/dl (6.4-8.2)
[2021-03-30 07:21] LABS: ALBUMIN 1.6 g/dl (3.4-5.0)
[2021-03-30] MEDS ORDERED: PIPERACILLIN/TAZOB 3.375 GM 3.375 GM in DEXTROSE 5%-WATER - 50 ML IVPB SCH (10:00)
[2021-03-30] MEDS: MUPIROCIN 2% TOPICAL OINTMENT FOR DECOLONIZATION NS SCH ×2 (10:23→23:04)
[2021-03-30] MEDS: THIAMINE HCL 200 MG/2 ML VIAL IVPB SCH (10:23)
[2021-03-30] MEDS: PANTOPRAZOLE SODIUM 40 MG VIAL IVPUSH SCH (10:24)
[2021-03-30] MEDS: SODIUM CHLORIDE 1,000 ML IV SCH (11:22)
[2021-03-30] MEDS: NOREPINEPHRINE D5W PREMIX 16,000 MCG/500 ML BAG IVPB SCH (12:22)
[2021-03-30] MEDS: CHLORHEXIDINE GLUCONATE 4% CLEANSER FOR DECOLONIZATION TP SCH (23:05)
[2021-03-31] MEDS: INSULIN SLIDING SCALE (NOVOLOG) 1 VIAL SQ SCH ×4 (01:08→17:16)
[2021-03-31] MEDS: ATORVASTATIN CA 40 MG TABLET (FP) PO SCH ×2 (01:08→21:07)
[2021-03-31] MEDS ORDERED: DEXTROSE 5%-WATER - 50 ML IVPB ONE ×4 (01:12→20:59)
[2021-03-31] MEDS ORDERED: PIPERACILLIN/TAZOBACTAM 3.375 GM VIAL IVPB ONE ×4 (01:12→20:59)
[2021-03-31] MEDS: PIPERACILLIN/TAZOB 3.375 GM 3.375 GM in DEXTROSE 5%-WATER - 50 ML IVPB SCH ×3 (01:31→17:13)
[2021-03-31] MEDS: LEVOTHYROXINE NA 75 MCG TABLET (FP) PO SCH (07:29)
[2021-03-31] MEDS: MUPIROCIN 2% TOPICAL OINTMENT FOR DECOLONIZATION NS SCH ×2 (10:10→21:07)
[2021-03-31] MEDS: PANTOPRAZOLE SODIUM 40 MG VIAL IVPUSH SCH (10:10)
[2021-03-31] MEDS: THIAMINE HCL 200 MG/2 ML VIAL IVPB SCH (10:11)
[2021-03-31 11:00] LABS: HEMATOCRIT 27.2 % (35.4-49); HEMOGLOBIN 9.1 GM/dL (11.7-16.9); MCH 29.3 pg (25.7-33.7); MCHC 33.6 g/dl (32.0-35.9); MEAN CELL VOLUME 87.1 fl (80-96); MEAN PLT VOLUME 9.5 fl (7.5-11.1); PLATELET COUNT 105 10^3/uL (134-434); RBC 3.12 M/mm3 (4.00-5.60); RDW 16.7 % (11.9-15.9); WHITE BLOOD COUNT 12.5 K/mm3 (4.0-10.0)
[2021-03-31 11:06] LABS: CALCIUM 7.6 mg/dL (8.5-10.1)
[2021-03-31 11:08] LABS: ALBUMIN 1.3 g/dl (3.4-5.0); BLOOD UREA NITROGEN 41.5 mg/dL (7-18); MAGNESIUM 1.9 mg/dL (1.8-2.4)
[2021-03-31 11:11] LABS: BILIRUBIN,TOTAL 0.6 mg/dL (0.2-1); CREATININE 2.3 mg/dL (0.55-1.3); PHOSPHOROUS 3.2 mg/dL (2.5-4.9); TOT PROT 4.7 g/dl (6.4-8.2)
[2021-03-31] MEDS: NOREPINEPHRINE D5W PREMIX 16,000 MCG/500 ML BAG IVPB SCH ×2 (12:00→12:21)
[2021-03-31] MEDS: PROPOFOL 1,000,000 MCG/100 ML VIAL IVPB SCH (12:22)
[2021-03-31] MEDS: SODIUM CHLORIDE 1,000 ML IV SCH ×2 (12:23→17:14)
[2021-03-31 12:49] LABS: ANISOCYTOSIS 1+; MACROCYTOSIS 0; PLATELET ESTIMATE DECREASED; TEAR DROP CELLS 1+
[2021-03-31 14:55] LABS: ARTERIAL BLD GAS O2 SATURATION 98.5 % (95-98); ARTERIAL BLOOD GAS BASE EXCESS -2.8 mmol/L (-2-2); ARTERIAL BLOOD GAS PO2 115.3 mmHg (80-100); ARTERIAL BLOOD GAS pH 7.482 (7.350-7.450)
[2021-03-31 14:57] LABS: ALLENS TEST POSITIVE; VENT MODE A/C
[2021-03-31 14:58] LABS: VENT RATE 22
[2021-03-31] MEDS ORDERED: DEXMEDETOMIDINE IN 0.9 % NACL 400 MCG/100 ML VIAL IVPB SCH (16:00)
[2021-03-31] MEDS: CHLORHEXIDINE GLUCONATE 4% CLEANSER FOR DECOLONIZATION TP SCH (21:08)
[2021-04-01] MEDS: INSULIN SLIDING SCALE (NOVOLOG) 1 VIAL SQ SCH ×4 (00:24→17:23)
[2021-04-01] MEDS: PIPERACILLIN/TAZOB 3.375 GM 3.375 GM in DEXTROSE 5%-WATER - 50 ML IVPB SCH (02:25)
[2021-04-01] MEDS: LEVOTHYROXINE NA 75 MCG TABLET (FP) PO SCH (06:24)
[2021-04-01] MEDS ORDERED: ACETAMINOPHEN 1000 MG/100 ML VIAL IVPB ONE (06:26)
[2021-04-01] MEDS ORDERED: PT OWN MED DRAWER 7, Y5N ONE ×2 (08:25→16:05)
[2021-04-01] MEDS ORDERED: DEXTROSE 5%-WATER - 50 ML IVPB ONE ×2 (08:26→09:10)
[2021-04-01] MEDS ORDERED: PIPERACILLIN/TAZOBACTAM 3.375 GM VIAL IVPB ONE ×2 (08:26→08:27)
[2021-04-01] MEDS ORDERED: CEFTRIAXONE 1 GM in DEXTROSE 5%-WATER - 50 ML IVPB ONE (09:01)
[2021-04-01] MEDS ORDERED: cefTRIAXone SODIUM 1 GM VIAL ONE (09:09)
[2021-04-01] MEDS: PANTOPRAZOLE SODIUM 40 MG VIAL IVPUSH SCH (09:19)
[2021-04-01] MEDS: THIAMINE HCL 200 MG/2 ML VIAL IVPB SCH (09:20)
[2021-04-01] MEDS: SODIUM CHLORIDE 1,000 ML IV SCH (09:20)
[2021-04-01] MEDS: MUPIROCIN 2% TOPICAL OINTMENT FOR DECOLONIZATION NS SCH ×2 (09:22→21:14)
[2021-04-01 10:08] LABS: HEMOGLOBIN 8.7 GM/dL (11.7-16.9); MCH 29.1 pg (25.7-33.7); MCHC 33.4 g/dl (32.0-35.9); MEAN CELL VOLUME 87.1 fl (80-96); MEAN PLT VOLUME 8.9 fl (7.5-11.1); PLATELET COUNT 93 10^3/uL (134-434); RBC 2.99 M/mm3 (4.00-5.60); WHITE BLOOD COUNT 9.5 K/mm3 (4.0-10.0)
[2021-04-01 10:32] LABS: BLOOD UREA NITROGEN 41.7 mg/dL (7-18); CALCIUM 7.4 mg/dL (8.5-10.1)
[2021-04-01 10:34] LABS: ALBUMIN 1.3 g/dl (3.4-5.0)
[2021-04-01 10:36] LABS: CREATININE 2.4 mg/dL (0.55-1.3)
[2021-04-01 10:38] LABS: BILIRUBIN,TOTAL 0.5 mg/dL (0.2-1); TOT PROT 4.8 g/dl (6.4-8.2)
[2021-04-01 11:09] LABS: ANISOCYTOSIS 1+; MACROCYTOSIS 1+; OVALOCYTE 1+; PLATELET ESTIMATE DECREASED
[2021-04-01 12:00] LABS: EPI CELLS 10 /uL (0-25.1); HYALINE CASTS 7 /uL (0-3.1); URINE APPEARANCE TURBID; URINE BACTERIA 172 /uL (0-1359); URINE BILIRUBIN NEGATIVE (NEGATIVE); URINE COLOR ORANGE; URINE GLUCOSE (UA) NEGATIVE (NEGATIVE); URINE KETONE TRACE (NEGATIVE); URINE LEUK ESTERASE 2+ (NEGATIVE); URINE NITRITE NEGATIVE (NEGATIVE); URINE PROTEIN 1+ (NEGATIVE); URINE RBC 4325 /uL (0-23.9); URINE WBC 540 /uL (0-25.8)
[2021-04-01] MEDS: NOREPINEPHRINE D5W PREMIX 16,000 MCG/500 ML BAG IVPB SCH ×2 (17:28→17:30)
[2021-04-01] MEDS: CHLORHEXIDINE GLUCONATE 4% CLEANSER FOR DECOLONIZATION TP SCH (21:14)
[2021-04-01] MEDS: ATORVASTATIN CA 40 MG TABLET (FP) NGT SCH (21:14)
[2021-04-02] MEDS: INSULIN SLIDING SCALE (NOVOLOG) 1 VIAL SQ SCH ×4 (00:21→17:53)
[2021-04-02] MEDS: LEVOTHYROXINE NA 75 MCG TABLET (FP) NGT SCH (06:00)
[2021-04-02 08:14] LABS: HEMATOCRIT 30.1 % (35.4-49); HEMOGLOBIN 10.2 GM/dL (11.7-16.9); MCH 29.9 pg (25.7-33.7); MCHC 34.1 g/dl (32.0-35.9); MEAN CELL VOLUME 87.8 fl (80-96); MEAN PLT VOLUME 9.2 fl (7.5-11.1); PLATELET COUNT 112 10^3/uL (134-434); RBC 3.43 M/mm3 (4.00-5.60); RDW 16.5 % (11.9-15.9); WHITE BLOOD COUNT 10.6 K/mm3 (4.0-10.0)
[2021-04-02 08:34] LABS: ALBUMIN 1.5 g/dl (3.4-5.0); BLOOD UREA NITROGEN 37.5 mg/dL (7-18); CALCIUM 7.6 mg/dL (8.5-10.1); MAGNESIUM 2.2 mg/dL (1.8-2.4); TOT PROT 5.3 g/dl (6.4-8.2)
[2021-04-02 08:35] LABS: BILIRUBIN,TOTAL 0.4 mg/dL (0.2-1); CREATININE 1.8 mg/dL (0.55-1.3); PHOSPHOROUS 3.7 mg/dL (2.5-4.9)
[2021-04-02] MEDS ORDERED: PT OWN MED DRAWER 7, Y5N ONE (08:47)
[2021-04-02] MEDS: THIAMINE HCL 200 MG/2 ML VIAL IVPB SCH (09:17)
[2021-04-02] MEDS: PANTOPRAZOLE SODIUM 40 MG VIAL IVPUSH SCH (09:17)
[2021-04-02] MEDS ORDERED: cefTRIAXone SODIUM 1 GM VIAL ONE (09:18)
[2021-04-02] MEDS ORDERED: DEXTROSE 5%-WATER - 50 ML IVPB ONE (09:18)
[2021-04-02] MEDS: CEFTRIAXONE 1 GM in DEXTROSE 5%-WATER - 50 ML IVPB SCH (09:20)
[2021-04-02] MEDS: MUPIROCIN 2% TOPICAL OINTMENT FOR DECOLONIZATION NS SCH (09:36)
[2021-04-02] MEDS: SODIUM CHLORIDE 1,000 ML IV SCH (09:46)
[2021-04-02] MEDS ORDERED: FUROSEMIDE 40 MG/4 ML INJECTABLE VIAL IVPUSH ONE (10:32)
[2021-04-02 10:56] LABS: ANISOCYTOSIS 0; HELMET CELLS 0; HOWELL-JOLLY BODIES 0; MACROCYTOSIS 0; OVALOCYTE 0; PLATELET ESTIMATE DECREASED; ROULEAU 0; SICKELED CELLS 0; TARGET CELLS 0; TEAR DROP CELLS 0; TOXIC GRANULATION 0
[2021-04-02] MEDS: NOREPINEPHRINE D5W PREMIX 16,000 MCG/500 ML BAG IVPB SCH (12:20)
[2021-04-03] MEDS: MUPIROCIN 2% TOPICAL OINTMENT FOR DECOLONIZATION NS SCH (00:41)
[2021-04-03] MEDS: CHLORHEXIDINE GLUCONATE 4% CLEANSER FOR DECOLONIZATION TP SCH ×2 (00:41→21:18)
[2021-04-03] MEDS: ATORVASTATIN CA 40 MG TABLET (FP) NGT SCH ×2 (00:50→21:18)
[2021-04-03] MEDS: INSULIN SLIDING SCALE (NOVOLOG) 1 VIAL SQ SCH ×4 (00:51→18:29)
[2021-04-03] MEDS: LEVOTHYROXINE NA 75 MCG TABLET (FP) NGT SCH (06:57)
[2021-04-03 07:31] LABS: HEMATOCRIT 25.4 % (35.4-49); HEMOGLOBIN 8.7 GM/dL (11.7-16.9); MCH 30.1 pg (25.7-33.7); MEAN CELL VOLUME 88.4 fl (80-96); MEAN PLT VOLUME 8.9 fl (7.5-11.1); PLATELET COUNT 95 10^3/uL (134-434); RBC 2.88 M/mm3 (4.00-5.60); RDW 16.7 % (11.9-15.9); WHITE BLOOD COUNT 9.9 K/mm3 (4.0-10.0)
[2021-04-03 07:42] LABS: CALCIUM 7.6 mg/dL (8.5-10.1)
[2021-04-03 07:43] LABS: ALBUMIN 1.4 g/dl (3.4-5.0); BLOOD UREA NITROGEN 31.5 mg/dL (7-18)
[2021-04-03 07:46] LABS: CREATININE 1.5 mg/dL (0.55-1.3); PHOSPHOROUS 3.3 mg/dL (2.5-4.9)
[2021-04-03 07:47] LABS: BILIRUBIN,TOTAL 0.4 mg/dL (0.2-1); TOT PROT 4.7 g/dl (6.4-8.2)
[2021-04-03] MEDS ORDERED: PT OWN MED DRAWER 7, Y5N ONE (08:47)
[2021-04-03] MEDS ORDERED: DEXTROSE 5%-WATER - 50 ML IVPB ONE (08:48)
[2021-04-03] MEDS ORDERED: cefTRIAXone SODIUM 1 GM VIAL ONE (08:48)
[2021-04-03 08:54] LABS: ANISOCYTOSIS 3+; MACROCYTOSIS 0; PLATELET ESTIMATE DECREASED; TARGET CELLS 1+
[2021-04-03] MEDS ORDERED: LACTATED RINGERS SOLUTION 1,000 ML/1,000 ML INFUS.BAG IV SCH (09:00)
[2021-04-03] MEDS: CEFTRIAXONE 1 GM in DEXTROSE 5%-WATER - 50 ML IVPB SCH (09:14)
[2021-04-03] MEDS: PANTOPRAZOLE SODIUM 40 MG VIAL IVPUSH SCH (09:14)
[2021-04-03] MEDS: THIAMINE HCL 200 MG/2 ML VIAL IVPB SCH (09:14)
[2021-04-03] MEDS: NOREPINEPHRINE D5W PREMIX 16,000 MCG/500 ML BAG IVPB SCH (12:30)
[2021-04-03] MEDS: POTASSIUM CHLORIDE 10 MEQ in SODIUM CHLORIDE 0.45% 1,000 ML IVPB SCH (13:45)
[2021-04-03 15:24] VITALS: BMI 25.2
[2021-04-04] MEDS: INSULIN SLIDING SCALE (NOVOLOG) 1 VIAL SQ SCH ×5 (00:04→23:56)
[2021-04-04] MEDS: POTASSIUM CHLORIDE 10 MEQ in SODIUM CHLORIDE 0.45% 1,000 ML IVPB SCH ×2 (02:00→16:00)
[2021-04-04] MEDS: LEVOTHYROXINE NA 75 MCG TABLET (FP) NGT SCH (06:00)
[2021-04-04 06:05] LABS: CALCIUM 7.8 mg/dL (8.5-10.1)
[2021-04-04 06:06] LABS: ALBUMIN 1.5 g/dl (3.4-5.0)
[2021-04-04 06:09] LABS: PHOSPHOROUS 3.1 mg/dL (2.5-4.9)
[2021-04-04 06:10] LABS: CREATININE 1.4 mg/dL (0.55-1.3)
[2021-04-04 06:11] LABS: BILIRUBIN,TOTAL 0.4 mg/dL (0.2-1); TOT PROT 5.4 g/dl (6.4-8.2)
[2021-04-04 06:27] LABS: BASO % 0.2 % (0-2.0); EOS % 0.2 % (0-4.5); HEMATOCRIT 28.6 % (35.4-49); HEMOGLOBIN 9.5 GM/dL (11.7-16.9); LYMPH % 10.5 % (8-40); MCH 29.2 pg (25.7-33.7); MCHC 33.1 g/dl (32.0-35.9); MEAN CELL VOLUME 88.2 fl (80-96); MEAN PLT VOLUME 9.2 fl (7.5-11.1); MONO % 6.9 % (3.8-10.2); NEUT % 82.2 % (42.8-82.8); PLATELET COUNT 110 10^3/uL (134-434); RBC 3.25 M/mm3 (4.00-5.60); RDW 16.9 % (11.9-15.9); WHITE BLOOD COUNT 10.2 K/mm3 (4.0-10.0)
[2021-04-04] MEDS ORDERED: cefTRIAXone SODIUM 1 GM VIAL ONE (09:16)
[2021-04-04] MEDS ORDERED: DEXTROSE 5%-WATER - 50 ML IVPB ONE (09:16)
[2021-04-04] MEDS: PANTOPRAZOLE SODIUM 40 MG VIAL IVPUSH SCH (10:13)
[2021-04-04] MEDS: THIAMINE HCL 200 MG/2 ML VIAL IVPB SCH (10:13)
[2021-04-04] MEDS: NOREPINEPHRINE D5W PREMIX 16,000 MCG/500 ML BAG IVPB SCH ×2 (10:14→13:00)
[2021-04-04] MEDS: CEFTRIAXONE 1 GM in DEXTROSE 5%-WATER - 50 ML IVPB SCH (10:14)
[2021-04-04] MEDS ORDERED: PT OWN MED DRAWER 7, Y5N ONE (14:53)
[2021-04-04] MEDS: ATORVASTATIN CA 40 MG TABLET (FP) NGT SCH (21:00)
[2021-04-04] MEDS: CHLORHEXIDINE GLUCONATE 4% CLEANSER FOR DECOLONIZATION TP SCH (21:01)
[2021-04-05] MEDS: POTASSIUM CHLORIDE 10 MEQ in SODIUM CHLORIDE 0.45% 1,000 ML IVPB SCH (04:29)
[2021-04-05] MEDS: INSULIN SLIDING SCALE (NOVOLOG) 1 VIAL SQ SCH ×3 (06:03→18:33)
[2021-04-05] MEDS: LEVOTHYROXINE NA 75 MCG TABLET (FP) NGT SCH (06:04)
[2021-04-05] MEDS ORDERED: FUROSEMIDE 100 MG/10 ML INJECTABLE VIAL IVPB ONE (08:20)
[2021-04-05] MEDS ORDERED: DEXTROSE 5%-WATER - 50 ML IVPB ONE (09:19)
[2021-04-05] MEDS ORDERED: cefTRIAXone SODIUM 1 GM VIAL ONE (09:19)
[2021-04-05] MEDS: CEFTRIAXONE 1 GM in DEXTROSE 5%-WATER - 50 ML IVPB SCH (09:22)
[2021-04-05] MEDS: PANTOPRAZOLE SODIUM 40 MG VIAL IVPUSH SCH (09:22)
[2021-04-05] MEDS: THIAMINE HCL 200 MG/2 ML VIAL IVPB SCH (09:24)
[2021-04-05 13:25] VITALS: BP 96/56; TEMP 98
[2021-04-05] MEDS: FUROSEMIDE 40 MG/4 ML INJECTABLE VIAL IVPUSH SCH (15:30)
[2021-04-05] MEDS: CHLORHEXIDINE GLUCONATE 4% CLEANSER FOR DECOLONIZATION TP SCH (22:00)
[2021-04-05] MEDS: ATORVASTATIN CA 40 MG TABLET (FP) NGT SCH (22:00)
[2021-04-06] MEDS: FUROSEMIDE 40 MG/4 ML INJECTABLE VIAL IVPUSH SCH (06:14)
[2021-04-06] MEDS: INSULIN SLIDING SCALE (NOVOLOG) 1 VIAL SQ SCH ×2 (06:31)
[2021-04-06 09:13] VITALS: PULSE 18
== END 2021-04-06 13:03 | disposition expired | DRG 870 ==
LOC: JER 03:20 → JERBED 03:50 → JICU 08:33
PROVIDERS: ADMIT Family Medicine; ATTEND Family Medicine
PROC: 5A1955Z Respiratory Ventilation, Greater than 96 Consecutive Hours (ICD-10-PCS; principal; 2021-03-29)
PROC: 0BH17EZ Insertion of Endotracheal Airway into Trachea, Via Natural or Artificial Opening (ICD-10-PCS; 2021-03-29)
PROC: 05HM33Z Insertion of Infusion Device into Right Internal Jugular Vein, Percutaneous Approach (ICD-10-PCS; 2021-03-29)
DX: A41.9 Sepsis, unspecified organism (principal); J96.02 Acute respiratory failure with hypercapnia; J96.01 Acute respiratory failure with hypoxia; R65.21 Severe sepsis with septic shock; I50.43 Acute on chronic combined systolic (congestive) and diastolic (congestive) heart failure; E87.2 Acidosis; R64 Cachexia; N17.9 Acute kidney failure, unspecified; N39.0 Urinary tract infection, site not specified; E87.0 Hyperosmolality and hypernatremia; I46.9 Cardiac arrest, cause unspecified; R74.01 Elevation of levels of liver transaminase levels; E03.9 Hypothyroidism, unspecified; I34.0 Nonrheumatic mitral (valve) insufficiency; D69.6 Thrombocytopenia, unspecified; E78.5 Hyperlipidemia, unspecified; I11.0 Hypertensive heart disease with heart failure; D72.829 Elevated white blood cell count, unspecified; E11.9 Type 2 diabetes mellitus without complications; E66.9 Obesity, unspecified; Z68.26 Body mass index [BMI] 26.0-26.9, adult; I95.9 Hypotension, unspecified
CPT/HCPCS: 36415; 36600; 71045-TC-FY; 76937; 80053; 81003; 82803; 82962; 83605; 83735; 83880; 84100; 84443; 84484; 85025; 85027; 85610; 85730; 86850; 86900; 86901; 87040; 87070; 87086; 87186; 87205; 93005; 93010; 93308; 94002; 99291; C9803; J0131; U0003; U0005